=== PATIENT | female | born 1940 | race Caucasian/White ===

== ENCOUNTER 2020-07-23 07:13 | Outpatient (CLI) | payer MEDICARE, SELFPAY ==
[2020-07-23 07:46] LABS: Basophils Absolute Auto 0.1 K/mm3 (0.0-0.1); Eosinophils Absolute Auto 0.4 K/mm3 (0-0.3); Eosinophils Percent Auto 4.9 % (0-4.4); Hematocrit 36.1 % (37.0-47.0); Hemoglobin 11.9 g/dL (12.0-15.0); Immature Granulocyte Absolute 0.04 K/mm3 (0.00-0.031); Immature Granulocyte Percent A 0.6 % (0-0.5); Lymphocytes Absolute Auto 1.32 K/mm3 (0.9-3.2); Lymphocytes Percent Auto 18.6 % (18.3-44.2); Mean Corpuscular Hemoglobin 29.6 pg (26-34); Mean Corpuscular Volume 89.8 fl (80-100); Mean Platelet Volume 10.3 fl (7.4-10.4); Monocytes Absolute Auto 0.4 K/mm3 (0.1-0.6); Monocytes Percent Auto 5.8 % (2.6-8.5); Neutrophils Absolute Auto 4.9 K/mm3 (1.3-6.7); Neutrophils Percent Auto 69.1 % (45.5-73.1); Platelet Count Result 173 k/mm3 (150-375); Red Blood Count 4.02 M/mm3 (4.2-5.4); Red Cell Distribution Width 12.7 % (11.5-14.5); White Blood Count 7.1 K/mm3 (4.5-10.0)
[2020-07-23 07:55] LABS: Alanine Aminotransferase 11 U/L (4-35); Albumin Level 4.1 g/dL (3.5-5.1); Alkaline Phosphatase 71 U/L (38-126); Anion Gap 8 mmol/L (8-16); Aspartate Amino Transferase 20 U/L (14-36); Bilirubin,Total 0.4 mg/dL (0.2-1.3); Blood Urea Nitrogen 20 mg/dL (7-17); Carbon Dioxide 26 mmol/L (22-30); Chloride 109 mmol/L (98-107); Cholesterol 147 mg/dL (0-200); Estimated Glomerular Filt Rate 43; Glucose 98 mg/dL (65-105); HDL Direct 60 mg/dL; Potassium 4.2 mmol/L (3.4-5.0); Sodium 143 mmol/L (137-145); Triglycerides 119 mg/dL (<150)
[2020-07-23 08:06] LABS: LDL Cholesterol Direct 59 mg/dL
[2020-07-27 10:05] LABS: Vitamin D 1,25 (OH)2 Total 49 pg/mL (18-72); Vitamin D2 1,25 (OH)2 9 pg/mL; Vitamin D3 1,25 (OH)2 40 pg/mL
== END 2020-07-23 07:14 | disposition home or self-care (01) ==
PROVIDERS: PCP Family Medicine; Visit Provider Physician Assistant
DX: E55.9 Vitamin D deficiency, unspecified (principal); R53.1 Weakness; F51.04 Psychophysiologic insomnia; E78.2 Mixed hyperlipidemia; K21.9 Gastro-esophageal reflux disease without esophagitis
CPT/HCPCS: 36415; 80053; 80061; 82652; 85025

== ENCOUNTER 2021-10-21 09:47 | Outpatient (CLI) | payer MEDICARE, SELFPAY ==
--- NOTE | ~2021-10-21 | XR_ITS ---
XR lumbar spine min 4V DATE: 10/21/2021 10:06 INDICATION: Back pain, radiculopathy TECHNIQUE: AP, bilateral oblique, lateral and coned lateral lumbosacral views COMPARISON: 10/31/2017 CT lumbar spine FINDINGS: There is diffuse osteopenia. Mild dextroscoliosis of the lumbar spine. There is moderately severe degenerative disc disease at L1-L2 3 and moderate degenerative disc diseas e at L3-4. Status post posterior and interbody spinal fusion at L4-5. There is grade 1 anterolisthesis at L5-S1. The L5-S1 interspace appears relatively well preserved. The sacroiliac joints are intact. There is abdominal aortic calcification, without aneurysm. IMPRESSION: Status post posterior and interbody spinal fusion at L4-5 Multi-level degenerative disc disease Grade 1 anterolisthesis at L5-S1 Osteopenia Reviewed, dictated and finalized at location A. 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
== END 2021-10-21 09:48 | disposition home or self-care (01) ==
LOC: ANHIMG 09:54
PROVIDERS: PCP Family Medicine; Visit Provider Family Medicine
DX: M47.26 Other spondylosis with radiculopathy, lumbar region (principal); Z98.1 Arthrodesis status; M51.36 Other intervertebral disc degeneration, lumbar region; M43.17 Spondylolisthesis, lumbosacral region; M85.88 Other specified disorders of bone density and structure, other site
CPT/HCPCS: 72110

== ENCOUNTER 2021-11-26 08:25 | Outpatient (CLI) | payer MEDICARE, SELFPAY ==
--- NOTE | ~2021-11-26 | MR_ITS ---
EXAMINATION: MR lumbar spine wo con EXAM DATE: 11/26/2021 09:17 INDICATION: Other low back pain TECHNIQUE: Multi-sequential, multiplanar MR images of the lumbar spine were obtained without contrast . Sagittal T1, T2, T2 fat saturation images. Axial T2 weighted images. Comparison is made to prior examination from 10/27/2014. FINDINGS: There is been interval L4-5 posterior and interbody fusion with 3 mm anterolisthesis. Proba ble laminotomies at that level. Moderate to severe loss of the L2-3 disc height, mild to moderate L1- T2 disc disease. The conus medullaris terminates at the L1/2 level and has normal signal intensity an d morphology. Chronic appearing mild anterior wedging of T12 has developed compared to 2015. There a re scattered focal signal abnormalities consistent with hemangiomata, otherwise without focal suspici ous marrow signal abnormalities. Paraspinal soft tissue is unremarkable. Level by level evaluation: T10-11: Sagittal images only. Mild to moderate disc bulge. Facet arthropathy: Mild to moderate. Neural foraminal stenosis: Mild left. Central canal stenosis: Mild to moderate. T11-12: Sagittal images only. Mild disc bulge. Facet arthropathy: Minimal. Neural foraminal stenosis: No stenosis. Central canal stenosis: No stenosis. T12-L1: There is a minimal diffuse disc bulge. Facet arthropathy: Mild. Neural foraminal stenosis: Mild left. Central canal stenosis: No stenosis. L1-L2: There is a mild to moderate diffuse disc bulge. Facet arthropathy: Mild. Neural foraminal stenosis: Mild to moderate left, mild right. Central canal stenosis: Mild. L2-L3: There is a moderate diffuse disc bulge. Facet arthropathy: Mild to moderate. Neural foraminal stenosis: Mild to moderate bilateral. Central canal stenosis: Mild to moderate. L3-L4: There is a mild to moderate diffuse disc bulge. Facet arthropathy: Moderate. Neural foraminal stenosis: Mild to moderate bilateral. Central canal stenosis: Mild. L4-L5: This level is fused. Facet arthropathy: Fused. Neural foraminal stenosis: Moderate bilateral. Central canal stenosis: Mild. L5-S1: There is a mild diffuse disc bulge. Facet arthropathy: Moderate to severe bilateral, right greater than left. Neural foraminal stenosis: Mild to moderate left, mild right. Central canal stenosis: Mild. IMPRESSION: 1. Interval posterior fusion, laminotomies at L4-5. 2. Mild progression lumbar spondylosis. Reviewed, dictated and finalized at location A. 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
== END 2021-11-26 08:26 | disposition home or self-care (01) ==
LOC: ANHIMG 08:25
PROVIDERS: PCP Family Medicine; Visit Provider Nurse Practitioner Family
DX: M54.59 Other low back pain (principal); Z98.1 Arthrodesis status; M47.816 Spondylosis without myelopathy or radiculopathy, lumbar region
CPT/HCPCS: 72148

== ENCOUNTER 2021-12-02 01:41 | Day surgery (SDC) | payer MEDICARE, SELFPAY ==
[2021-11-25 09:26] VITALS: BMI 22.9
[2021-12-02 11:06] VITALS: BP 182/77; PULSE 65; RESP 20; TEMP 36.1; O2SAT 98; BMI 23.8
--- NOTE | 2021-12-02 11:08 | WPDANESEPPF ---
Anes - Initial Pre Proc Eval Procedure: Operation Date: 12/02/21 11:30 Proposed Procedures p Esophagogastroduodenoscopy - Niranjan Goodwin MD Date/Time: 12/02/21 11:08 Surgeon: Niranjan Goodwin MD Pre Op Diagnosis: dysphagia Patient Data Age: 81 Gender: F Height: 1.57 m Weight: 57 kg Allergies Allergy/AdvReac Type Severity Reaction Status Date / Time codeine Allergy Intermediate Nausea Verified 12/02/21 11:05 sulfamethoxazole Allergy Intermediate RASH Verified 12/02/21 11:05 trimethoprim Allergy Intermediate RASH Verified 12/02/21 11:05 ciprofloxacin Allergy Unknown Rash Verified 12/02/21 11:05 Sulfa (Sulfonamide Allergy Unknown Rash Verified 12/02/21 11:05 Antibiotics) mirtazapine AdvReac agitation Verified 12/02/21 11:05 MANY ANTIBIOTICS AdvReac Unknown RASH Uncoded 12/02/21 11:05 Home Medications Medication Instructions Recorded Confirmed Type rosuvastatin 10 mg tablet 10 mg PO DAILY #90 tablet 01/18/21 12/02/21 Rx bupropion HCl 100 mg tablet 100 mg PO DAILY #90 tablet 05/05/21 12/02/21 Rx omeprazole 40 mg capsule,delayed 40 mg PO DAILY #90 cap 05/05/21 12/02/21 Rx release memantine 5 mg tablet 5 mg PO BID #180 tablet 05/31/21 12/02/21 Rx gabapentin 100 mg capsule 100 mg PO TID #90 cap 10/21/21 12/02/21 Rx buspirone 5 mg PO TID 11/25/21 12/02/21 History quetiapine [Seroquel] 25 mg PO QHS 11/25/21 12/02/21 History Patient hx anesthesia problems: none Family hx anesthesia problems: none Results Review: All pre-operative results and documents have been reviewed as part of the pre-operative evaluation. [facility] Past Medical History Medical History Anxiety Depression Episode of syncope Esophageal dilatation SAM (generalized anxiety disorder) GERD (gastroesophageal reflux disease) History of cancer of right breast mastectomy, no lymph nodes taken Hyperlipidemia Schatzki's ring Surgical History Surgical History H/O breast reconstruction R H/O mastectomy Family History Family History Father Diabetes mellitus Hypertension Family history of cardiovascular disease Mother Diabetes mellitus Hypertension Family history of cardiovascular disease Family history of malignant neoplasm of breast in first degree relative Social History Social History (Updated 12/02/21 @ 11:08 by Tyler Grider MD) Social History: Smoking packs per day: 0.5 Smoking cigarettes per day: 10.0 Years smoked: 10 Smoking pack-years: 5.00 Smoking status: Former smoker Tobacco type: cigarettes Second hand tobacco smoke exposure: No Smoking end date: 10/01/70 Alcohol intake: never Substance use: never Substance use type: does not use Living arrangements: with family Gender identity (if verbalized by the patient): Female Sexual Orientation (if Verbalized by the Patient): Straight or Heterosexual Spiritual care concerns: No Anes - Eval Final PreProcedure Day of Procedure 12/02/21 11:08 Patient weight: normal Heart: regular rate and rhythm Lungs: clear to auscultation Airway: Mallampati scale class II Neurological: alert and oriented Last oral intake: >/= 8 hours ASA classification: II Emergent: no Anesthetic plan: proceed Anesthesia type and monitoring: general GIVS and standard monitoring Results Review: All pre-operative results and documents have been reviewed as part of the pre-operative evaluation. Informed Consent: The patient's anesthetic plan and its attendant risks and benefits were discussed with the patient/family/POA. Questions were solicited and answers provided to the satisfaction of the patient/family/POA.
[2021-12-02] MEDS: LACTATED RINGERS 1,000 ML 150 ML IV CONT (11:09)
--- NOTE | 2021-12-02 11:24 | PM.HPGS ---
History of Present Illness History of Present Illness Consent: Risks, benefits, and alternatives have been discussed and questions answered. Patient agrees to proceed with procedure. Chief complaint: dysphagia Narrative: Barbara Salgado is a 81 year old female with Schatzki's ring dilated in 2019 with TTS balloon 18mm, recently again with dysphagia. Review of Systems Constitutional: Constitutional: Denies headache(s) and Denies weakness Eyes: Eyes: Denies blurry vision ENT: Reports Normal hearing present, Denies headache(s) and Denies neck pain Cardiovascular: Cardiovascular: Denies chest pain and Denies dyspnea Respiratory: Respiratory: Denies dyspnea Gastrointestinal: Gastrointestinal: Reports no additional gastrointestinal complaints Genitourinary: Genitourinary: Denies dysuria Musculoskeletal: Musculoskeletal: Denies neck pain Integumentary/Breasts: Skin/Breast: Denies dry skin Neurologic: Reports Normal hearing present, Denies headache(s) and Denies weakness Psychiatric: Psychiatric: Denies anxiety Endocrine: Endocrine: Denies change in body appearance Hematologic/Lymphatic: Hematologic/Lymphatic: Denies easy bleeding Allergic/Immunologic: Allergic/Immunologic: Denies urticaria PMFSH Past Medical History Medical History (Updated 12/02/21 @ 11:25 by Niranjan Goodwin MD) Anxiety Depression Episode of syncope Esophageal dilatation SAM (generalized anxiety disorder) GERD (gastroesophageal reflux disease) History of cancer of right breast mastectomy, no lymph nodes taken Hyperlipidemia Schatzki's ring Surgical History Surgical History H/O breast reconstruction R H/O mastectomy Family History Family History Father Diabetes mellitus Hypertension Family history of cardiovascular disease Mother Diabetes mellitus Hypertension Family history of cardiovascular disease Family history of malignant neoplasm of breast in first degree relative Social History Social History (Updated 12/02/21 @ 11:08 by Tyler Grider MD) Social History: Smoking packs per day: 0.5 Smoking cigarettes per day: 10.0 Years smoked: 10 Smoking pack-years: 5.00 Smoking status: Former smoker Tobacco type: cigarettes Second hand tobacco smoke exposure: No Smoking end date: 10/01/70 Alcohol intake: never Substance use: never Substance use type: does not use Living arrangements: with family Gender identity (if verbalized by the patient): Female Sexual Orientation (if Verbalized by the Patient): Straight or Heterosexual Spiritual care concerns: No Meds Home Medications and Allergies Home Medications Medication Instructions Recorded Confirmed Type rosuvastatin 10 mg tablet 10 mg PO DAILY #90 tablet 01/18/21 12/02/21 Rx bupropion HCl 100 mg tablet 100 mg PO DAILY #90 tablet 05/05/21 12/02/21 Rx omeprazole 40 mg capsule,delayed 40 mg PO DAILY #90 cap 05/05/21 12/02/21 Rx release memantine 5 mg tablet 5 mg PO BID #180 tablet 05/31/21 12/02/21 Rx gabapentin 100 mg capsule 100 mg PO TID #90 cap 10/21/21 12/02/21 Rx buspirone 5 mg PO TID 11/25/21 12/02/21 History quetiapine [Seroquel] 25 mg PO QHS 11/25/21 12/02/21 History Allergies Allergy/AdvReac Type Severity Reaction Status Date / Time codeine Allergy Intermediate Nausea Verified 12/02/21 11:05 sulfamethoxazole Allergy Intermediate RASH Verified 12/02/21 11:05 trimethoprim Allergy Intermediate RASH Verified 12/02/21 11:05 ciprofloxacin Allergy Unknown Rash Verified 12/02/21 11:05 Sulfa (Sulfonamide Allergy Unknown Rash Verified 12/02/21 11:05 Antibiotics) mirtazapine AdvReac agitation Verified 12/02/21 11:05 MANY ANTIBIOTICS AdvReac Unknown RASH Uncoded 12/02/21 11:05 Vital Signs Vital Signs - 24 hr 12/02/21 11:06 Temperature 97 F L Pulse Rate 65 Respiratory Rate 20 Blood P
[2021-12-02 11:40] VITALS: BP 149/79; PULSE 66; RESP 16; O2SAT 100
[2021-12-02 11:50] VITALS: BP 124/71; PULSE 64; RESP 18; O2SAT 100
[2021-12-02 12:00] VITALS: BP 146/82; PULSE 61; RESP 20; O2SAT 100
== END 2021-12-02 12:21 | disposition home or self-care (01) ==
PROVIDERS: PCP Family Medicine; Visit Provider Internal Medicine Gastroenterology
PROC: 0DJ08ZZ Inspection of Upper Intestinal Tract, Via Natural or Artificial Opening Endoscopic (ICD-10-PCS; CPT 43235; principal; 2021-12-02 11:30)
DX: R13.19 Other dysphagia (principal); K44.9 Diaphragmatic hernia without obstruction or gangrene; Z90.11 Acquired absence of right breast and nipple; K22.2 Esophageal obstruction; K29.60 Other gastritis without bleeding; F41.8 Other specified anxiety disorders; F41.1 Generalized anxiety disorder; K21.9 Gastro-esophageal reflux disease without esophagitis; Z85.3 Personal history of malignant neoplasm of breast; E78.5 Hyperlipidemia, unspecified; Z87.81 Personal history of (healed) traumatic fracture
CPT/HCPCS: 43239; 43249; 88305; C1726; J2001; J2704; J7120

== ENCOUNTER 2022-06-26 09:44 | Outpatient (CLI) | payer MEDICARE, SELFPAY ==
--- NOTE | ~2022-06-26 | XR_ITS ---
XR shoulder LT min 2V 06/26/2022 10:03 INDICATION: Left shoulder pain PROCEDURE: 4 views left shoulder COMPARISON: No prior studies for comparison. FINDINGS: Fracture, dislocation or subluxation is not identified. The soft tissues appear within norm al limits. No foreign bodies are identified. IMPRESSION: 1: NO ACUTE BONE OR JOINT ABNORMALITY IDENTIFIED. Reviewed, dictated and finalized at location B.
== END 2022-06-26 09:45 | disposition home or self-care (01) ==
PROVIDERS: PCP Family Medicine; Visit Provider Family Medicine
DX: M25.512 Pain in left shoulder (principal)
CPT/HCPCS: 73030

== ENCOUNTER 2022-11-22 10:43 | Outpatient (CLI) | payer MEDICARE, SELFPAY ==
--- NOTE | ~2022-11-22 | XR_ITS ---
XR abdomen/kub 1V 11/22/2022 11:07 Indication: Abdominal pain Procedure: KUB Comparison: 11/16/2014 Findings: Bowel gas pattern is nonobstructive. Moderate colonic fecal loading. There surgical fusion changes at L4-5. There is atherosclerosis in the upper abdomen. There are pelvic phleboliths. Lung ba ses are unremarkable. Impression: 1: Nonobstructive bowel gas pattern. Reviewed, dictated and finalized at location B. 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
[2022-11-22 11:19] LABS: Alanine Aminotransferase 14 U/L (6-35); Albumin Level 4.4 g/dL (3.5-5.1); Alkaline Phosphatase 73 U/L (38-126); Anion Gap 9 mmol/L (8-16); Aspartate Amino Transferase 20 U/L (14-36); Bilirubin,Total 0.5 mg/dL (0.2-1.3); Blood Urea Nitrogen 13 mg/dL (7-17); Calcium 9.3 mg/dL (8.4-10.2); Carbon Dioxide 23 mmol/L (22-30); Chloride 106 mmol/L (98-107); Estimated Glomerular Filt Rate 60; Glucose 112 mg/dL (65-110); Potassium 3.4 mmol/L (3.4-5.0); Sodium 138 mmol/L (137-145)
[2022-11-22 11:22] LABS: Basophils Absolute Auto 0.1 K/mm3 (0.0-0.1); Basophils Percent Auto 0.7 % (0.2-1.2); Eosinophils Absolute Auto 0.2 K/mm3 (0-0.3); Eosinophils Percent Auto 2.2 % (0-4.4); Hematocrit 38.4 % (37.0-47.0); Hemoglobin 12.8 g/dL (12.0-15.0); Immature Granulocyte Absolute 0.04 K/mm3 (0.00-0.031); Immature Granulocyte Percent A 0.4 % (0-0.5); Lymphocytes Absolute Auto 0.98 K/mm3 (0.9-3.2); Lymphocytes Percent Auto 10.4 % (18.3-44.2); Mean Corpuscular HGB Conc 33.3 g/dl (32-36); Mean Corpuscular Hemoglobin 29.8 pg (26-34); Mean Corpuscular Volume 89.3 fl (80-100); Mean Platelet Volume 10.4 fl (7.4-10.4); Monocytes Absolute Auto 0.5 K/mm3 (0.1-0.6); Monocytes Percent Auto 5.3 % (2.6-8.5); Neutrophils Absolute Auto 7.6 K/mm3 (1.3-6.7); Platelet Count Result 195 k/mm3 (150-375); Red Cell Distribution Width 12.6 % (11.5-14.5); White Blood Count 9.4 K/mm3 (4.5-10.0)
[2022-11-22 11:34] LABS: Add Urine Microscopic? YES; Appearance Urine Cloudy (Clear); Bilirubin Urine Negative (Negative); Blood Urine 2+ (Negative); Color Urine Yellow (Yellow); Glucose Urine UA Trace mg/dL (Negative); Ketones Urine Negative (Negative); Leukocyte Esterase Ur 2+ LEU/UL (Negative); Nitrate Urine Positive (Negative); Protein Urine 2+ mg/dL (Negative)
[2022-11-22 11:38] LABS: Mucus Urine Rare /lpf; RBC Urine 21-50 /hpf (0-2); Squamous Epithelial Cell Urine Occasional /hpf (Few); WBC Clumps Urine Present /HPF; WBC Urine >75 /hpf
== END 2022-11-22 10:44 | disposition home or self-care (01) ==
PROVIDERS: PCP Family Medicine; Visit Provider Nurse Practitioner Gerontology
DX: R10.9 Unspecified abdominal pain (principal); R30.0 Dysuria; R55 Syncope and collapse; I10 Essential (primary) hypertension
CPT/HCPCS: 36415; 74018; 80053; 81001; 84443; 85025; 87086; 87088

== ENCOUNTER 2022-12-11 07:19 | Outpatient (CLI) | payer MEDICARE, SELFPAY ==
[2022-12-11 10:11] LABS: Rapid Plasma Reagin Non-Reactive (NonReactive)
== END 2022-12-11 07:20 | disposition home or self-care (01) ==
PROVIDERS: PCP Family Medicine; Referring Provider Nurse Practitioner Gerontology; Visit Provider Family Medicine
DX: Z20.9 Contact with and (suspected) exposure to unspecified communicable disease (principal); R55 Syncope and collapse; I10 Essential (primary) hypertension
CPT/HCPCS: 36415; 84443; 86592

== ENCOUNTER 2023-01-01 15:28 | Outpatient (CLI) | payer MEDICARE, SELFPAY ==
--- NOTE | ~2023-01-01 | XR_ITS ---
EXAMINATION: XR shoulder RT min 2V DATE: 01/01/2023 15:49 INDICATION: Right shoulder pain. TECHNIQUE: 4 views of right shoulder were obtained. COMPARISON: None. FINDINGS: Bone alignment is normal. No fracture. There is mild osteoarthritis of glenohumeral joint a nd severe osteoarthritis of acromioclavicular joint. IMPRESSION: 1. Polyarticular osteoarthritis. Reviewed, dictated and finalized at location A.
== END 2023-01-01 15:29 | disposition home or self-care (01) ==
LOC: ANHIMG 15:29
PROVIDERS: PCP Family Medicine; Visit Provider Nurse Practitioner Gerontology
DX: M19.011 Primary osteoarthritis, right shoulder (principal)
CPT/HCPCS: 73030

== ENCOUNTER 2023-03-22 10:25 | Outpatient (CLI) | payer MEDICARE, SELFPAY ==
--- NOTE | ~2023-03-22 | XR_ITS ---
XR chest 2V 03/22/2023 10:53 Indication: Shortness of breath Procedure: PA and lateral views of the chest Comparison: 12/11/2018 Findings: Heart size normal. Chronic left basilar scarring. The lungs are hyperinflated which is cons istent with, but not diagnostic of chronic obstructive pulmonary disease. No focal air space disease, pulmonary edema, pleural effusion or suspected pneumothorax. Impression: 1: No acute cardiopulmonary disease. Reviewed, dictated and finalized at location L. Impression: 1: No acute cardiopulmonary disease.
[2023-03-22 10:44] LABS: Basophils Absolute Auto 0.1 K/mm3 (0.0-0.1); Eosinophils Absolute Auto 0.3 K/mm3 (0-0.3); Eosinophils Percent Auto 3.3 % (0-4.4); Hematocrit 33.7 % (37.0-47.0); Immature Granulocyte Absolute 0.07 K/mm3 (0.00-0.031); Immature Granulocyte Percent A 0.8 % (0-0.5); Lymphocytes Absolute Auto 1.17 K/mm3 (0.9-3.2); Lymphocytes Percent Auto 14.2 % (18.3-44.2); Mean Corpuscular HGB Conc 32.6 g/dl (32-36); Mean Corpuscular Hemoglobin 31.3 pg (26-34); Mean Corpuscular Volume 95.7 fl (80-100); Monocytes Absolute Auto 0.5 K/mm3 (0.1-0.6); Monocytes Percent Auto 5.9 % (2.6-8.5); Neutrophils Absolute Auto 6.2 K/mm3 (1.3-6.7); Neutrophils Percent Auto 74.8 % (45.5-73.1); Platelet Count Result 189 k/mm3 (150-375); Red Blood Count 3.52 M/mm3 (4.2-5.4); Red Cell Distribution Width 12.8 % (11.5-14.5); White Blood Count 8.3 K/mm3 (4.5-10.0)
[2023-03-22 20:19] LABS: Alanine Aminotransferase 16 U/L (6-35); Albumin Level 4.2 g/dL (3.5-5.1); Alkaline Phosphatase 52 U/L (38-126); Anion Gap 7 mmol/L (8-16); Aspartate Amino Transferase 24 U/L (14-36); Bilirubin,Total 0.5 mg/dL (0.2-1.3); Blood Urea Nitrogen 32 mg/dL (7-17); Calcium 9.2 mg/dL (8.4-10.2); Carbon Dioxide 29 mmol/L (22-30); Chloride 106 mmol/L (98-107); Estimated Glomerular Filt Rate 33; Glucose 102 mg/dL (65-110); Potassium 4.6 mmol/L (3.4-5.0); Sodium 142 mmol/L (137-145)
== END 2023-03-22 10:26 | disposition home or self-care (01) ==
PROVIDERS: PCP Family Medicine; Visit Provider Family Medicine
DX: R06.02 Shortness of breath (principal); I10 Essential (primary) hypertension; E03.9 Hypothyroidism, unspecified
CPT/HCPCS: 36415; 71046; 80053; 84443; 85025

== ENCOUNTER 2023-05-22 09:05 | Observation (INO) | payer MEDICARE, SELFPAY ==
[2023-05-22] VITALS (34 sets, daily range): BP systolic 103–151; BP diastolic 45–90; PULSE 63–131; RESP 11–29; TEMP 36.3–37.1; O2SAT 94–100; BMI 21.1
--- NOTE | ~2023-05-22 | XR_ITS ---
EXAMINATION: XR chest 2V DATE: 05/22/2023 11:00 INDICATION: Weakness TECHNIQUE: AP and lateral views of the chest are obtained. COMPARISON: 03/22/2023 FINDINGS: The lungs are free of acute opacities. No pleural effusion or pneumothorax. The cardiomedia stinal silhouette is normal. There is moderate thoracic spondylosis. There are changes of right maste ctomy with implant reconstruction. There are partially imaged changes of posterior fusion in the lumb ar spine. IMPRESSION: 1. No acute cardiopulmonary abnormality. Reviewed, dictated and finalized at location A.
--- NOTE | 2023-05-22 10:28 | ECG_ITS ---
Measurements Intervals [place] Rate: 70 P: 22 OK: 169 QRS: 14 QRSD: 79 T: 22 QT: 412 QTc: 445 Interpretive Statements SINUS RHYTHM POSSIBLE LEFT ATRIAL ENLARGEMENT [-0.1mV P-WAVE IN V1/V2] NONSPECIFIC ST AND T WAVE ABNORMALITY COMPARED TO ECG 07/16/2019 10:27:22 NO SIGNIFICANT CHANGES Electronically Signed On 05-22-2023 11:30:27 CDT by Mario Mai M.D.
[2023-05-22 10:51] LABS: Basophils Absolute Auto 0.1 K/mm3 (0.0-0.1); Basophils Percent Auto 0.9 % (0.2-1.2); Eosinophils Absolute Auto 0.1 K/mm3 (0-0.3); Eosinophils Percent Auto 1.6 % (0-4.4); Hematocrit 31.9 % (37.0-47.0); Hemoglobin 10.8 g/dL (12.0-15.0); Immature Granulocyte Absolute 0.19 K/mm3 (0.00-0.031); Immature Granulocyte Percent A 2.7 % (0-0.5); Lymphocytes Absolute Auto 1.15 K/mm3 (0.9-3.2); Lymphocytes Percent Auto 16.6 % (18.3-44.2); Mean Corpuscular HGB Conc 33.9 g/dl (32-36); Mean Corpuscular Hemoglobin 30.5 pg (26-34); Mean Corpuscular Volume 90.1 fl (80-100); Mean Platelet Volume 10.7 fl (7.4-10.4); Monocytes Absolute Auto 0.7 K/mm3 (0.1-0.6); Monocytes Percent Auto 9.4 % (2.6-8.5); Neutrophils Absolute Auto 4.8 K/mm3 (1.3-6.7); Neutrophils Percent Auto 68.8 % (45.5-73.1); Platelet Count Result 198 k/mm3 (150-375); Red Blood Count 3.54 M/mm3 (4.2-5.4); Red Cell Distribution Width 12.1 % (11.5-14.5); White Blood Count 6.9 K/mm3 (4.5-10.0)
[2023-05-22 11:05] LABS: Alanine Aminotransferase 24 U/L (6-35); Alkaline Phosphatase 75 U/L (38-126); Anion Gap 10 mmol/L (8-16); Aspartate Amino Transferase 29 U/L (14-36); Bilirubin,Total 0.7 mg/dL (0.2-1.3); Blood Urea Nitrogen 36 mg/dL (7-17); Calcium 9.4 mg/dL (8.4-10.2); Carbon Dioxide 28 mmol/L (22-30); Chloride 96 mmol/L (98-107); Estimated CRCL calculation 18 ml/min; Estimated Glomerular Filt Rate 31; Glucose 95 mg/dL (65-110); Potassium 3.5 mmol/L (3.4-5.0); Sodium 134 mmol/L (137-145)
[2023-05-22 11:49] LABS: Appearance Urine Clear (Clear); Bacteria Urine 4+ /hpf; Bilirubin Urine Negative (Negative); Blood Urine Negative (Negative); Color Urine Yellow (Yellow); Glucose Urine UA Negative (Negative); Ketones Urine Negative (Negative); Leukocyte Esterase Ur 2+ LEU/UL (Negative); Nitrate Urine Positive (Negative); Non Pathogenic Casts 0-2; Protein Urine Negative (Negative); RBC Urine 0-2 /hpf (0-2); Squamous Epithelial Cell Urine Occasional /hpf (Few)
[2023-05-22 11:50] LABS: Add Urine Microscopic? YES
[2023-05-22] MEDS: SODIUM CHLORIDE 0.9% IV 1,000 ML 999 ML IV CONT (13:37)
--- NOTE | 2023-05-22 13:42 | ED.GENADULT ---
HPI - General Adult General Chief complaint: Weakness Stated complaint: weakness Time Seen by Provider: 05/22/23 11:55 History of Present Illness HPI narrative: 82-year-old female with history of high cholesterol, hypertension, acute kidney injury present emergency department for evaluation of increased generalized weakness and urinary symptoms. Patient reports he started having increased generalized weakness and decreased p.o. intake yesterday. Patient does describe some pain with urination. Related Data Home Medications Medication Instructions Recorded Confirmed bupropion HCl 100 mg tablet 100 mg PO DAILY 05/22/23 05/22/23 buspirone 10 mg tablet 10 mg PO BID 05/22/23 05/22/23 fluoxetine 20 mg tablet 20 mg PO DAILY 05/22/23 05/22/23 irbesartan 150 1 tablet PO DAILY 05/22/23 05/22/23 mg-hydrochlorothiazide 12.5 mg tablet memantine 5 mg tablet 5 mg PO BID 05/22/23 05/22/23 omeprazole 40 mg capsule,delayed 40 mg PO DAILY 05/22/23 05/22/23 release quetiapine 25 mg tablet 25 mg PO HS 05/22/23 05/22/23 rosuvastatin 10 mg tablet 10 mg PO DAILY 05/22/23 05/22/23 Allergies Allergy/AdvReac Type Severity Reaction Status Date / Time codeine Allergy Intermediate Nausea Verified 05/22/23 16:35 sulfamethoxazole Allergy Intermediate RASH Verified 05/22/23 16:35 trimethoprim Allergy Intermediate RASH Verified 05/22/23 16:35 ciprofloxacin Allergy Unknown Rash Verified 05/22/23 16:35 Sulfa (Sulfonamide Allergy Unknown Rash Verified 05/22/23 16:35 Antibiotics) mirtazapine AdvReac agitation Verified 05/22/23 16:35 MANY ANTIBIOTICS AdvReac Unknown RASH Uncoded 05/22/23 16:35 Review of Systems Review of Systems: All systems reviewed & are unremarkable except as noted in HPI and below PMFSH Past Medical History Medical History Acute non-recurrent maxillary sinusitis Acute pain Anorexia Anxiety Breast cancer screening Chest pain at rest Depression Dietary counseling and surveillance (07/27/17) Dysphagia Episode of syncope Esophageal dilatation Face lesion SAM (generalized anxiety disorder) GERD (gastroesophageal reflux disease) Hip pain, bilateral History of cancer of right breast mastectomy, no lymph nodes taken History of postoperative nausea and vomiting Hyperlipidemia Other dysphagia Pain in left hip Pharyngoesophageal dysphagia Postmenopausal Postmenopausal Scalp itch Schatzki's ring Shoulder pain, left Shoulder pain, left Stomatitis Subacute ethmoidal sinusitis Syncope and collapse Tendinitis of left rotator cuff Tongue coating Vaginitis and vulvovaginitis Weakness Weight loss Weight loss Surgical History Surgical History H/O breast reconstruction R H/O mastectomy History of dental surgery History of hysterectomy Family History Family History (Updated 05/22/23 @ 16:26 by Fab Oden RN) Father Family history of cardiovascular disease Hypertension Mother Family history of cardiovascular disease Diabetes mellitus Family history of malignant neoplasm of breast in first degree relative Hypertension Social History Social History Social History: Smoking packs per day: 1 Smoking cigarettes per day: 20.0 Years smoked: 6 Smoking pack-years: 6.00 Smoking status: Former smoker Tobacco type: cigarettes Second hand tobacco smoke exposure: No Smoking end date: 10/01/70 Alcohol intake: never Substance use: never Substance use type: does not use Lack of Transportation: No Lack of Food: Never True Current Housing: I Have Housing Concerned About Future Housing: No Difficulty Paying Gas/Electric Bills: No Difficulty Paying for Meds: No Currently Unemployed: No Education: Master's Degree or Higher Difficulty w/ Childcare or Family Care: No Living arrangements: with family Occupation
[2023-05-22 13:49] LABS: Influenza A QL RT-PCR Negative (Negative); Influenza B QL RT-PCR Negative (Negative); RSV RNA, RT-PCR Negative (Negative); SARS-CoV-2 RNA PCR Negative (Negative)
[2023-05-22] MEDS: SODIUM CHLORIDE 0.9% IV 1,000 ML 75 ML IV CONT ×2 (15:12→23:19)
--- NOTE | 2023-05-22 15:52 | PC.NURSE ---
Called son, Isac at [phone], made aware of pt going to 311.
--- NOTE | 2023-05-22 16:10 | ADMGEN ---
This patient, Barbara Salgado, was admitted to 3 Med Surg Room 311-01. Patient/family oriented to hospital policies and general routines including ID bracelet, bed and alarms, visiting hours, pain management, procedures, bathroom and other care routines, personal items, smoking policy, room service/diet, and visiting hours. Information on how to activate the Rapid Response Team has been discussed. Patient/Family are encouraged to report perceived risks to care and to ask questions if they do not understand what they are told or what they should do.
--- NOTE | 2023-05-22 16:21 | PC.NURSE ---
transferred to floor with IV fluids infusing
[2023-05-22 16:43] LABS: Glucose Point of Care 104 mg/dl (65-105)
--- NOTE | 2023-05-22 22:41 | PM.IMHP ---
H&P: HPI History of Present Illness Date/Time: 05/22/23 22:41 Chief Complaint: weakness Narrative: This is a 82-year-old female with history of high cholesterol, hypertension, acute kidney injury present emergency department for evaluation of increased generalized weakness and urinary symptoms.? Patient reports he started having increased generalized weakness and decreased p.o. intake yesterday.? Patient does describe some pain with urination. H&H is 10.8 and 31.9. Chest x-ray was read as no acute cardiopulmonary abnormality. Urine was positive for nitrates. 2+ leukocyte esterase WBCs 11-20. 4+ urine bacteria. She was negative for influenza A/B RSV and COVID. The patient was given IV fluids and Rocephin. The patient stated she is feeling much better. The patient is being admitted to observation status on the date of service of 05/22/2023 Review of Systems Review of Systems: All systems reviewed & are unremarkable except as noted in HPI and below Constitutional: Constitutional: Reports as per HPI and Reports no additional constitutional complaints Eyes: Eyes: Reports as per HPI and Reports no additional eye complaints ENT: Reports system reviewed and no additional complaints, except as documented and Reports Normal hearing present Cardiovascular: Cardiovascular: Reports no additional cardiovascular complaints Respiratory: Respiratory: Reports no additional respiratory complaints and Reports no additional respiratory complaints Gastrointestinal: Gastrointestinal: Reports as per HPI and Reports no additional gastrointestinal complaints Musculoskeletal: Musculoskeletal: Reports no additional musculoskeletal complaints Integumentary/Breasts: Skin/Breast: Reports system reviewed and no additional complaints, except as docu and Reports as per HPI Neurologic: Reports system reviewed and no additional complaints, except as documented, Reports as per HPI and Reports Normal hearing present Psychiatric: Psychiatric: Reports no additional psychiatric complaints and Reports as per HPI Endocrine: Endocrine: Reports no additional endocrine complaints Hematologic/Lymphatic: Hematologic/Lymphatic: Reports no additional hematologic/lymphatic complaints Allergic/Immunologic: Allergic/Immunologic: Reports no additional allergic/immunologic complaints [facility] Past Medical History Medical History Acute non-recurrent maxillary sinusitis Acute pain Anorexia Anxiety Breast cancer screening Chest pain at rest Depression Dietary counseling and surveillance (07/27/17) Dysphagia Episode of syncope Esophageal dilatation Face lesion SAM (generalized anxiety disorder) GERD (gastroesophageal reflux disease) Hip pain, bilateral History of cancer of right breast mastectomy, no lymph nodes taken History of postoperative nausea and vomiting Hyperlipidemia Other dysphagia Pain in left hip Pharyngoesophageal dysphagia Postmenopausal Postmenopausal Scalp itch Schatzki's ring Shoulder pain, left Shoulder pain, left Stomatitis Subacute ethmoidal sinusitis Syncope and collapse Tendinitis of left rotator cuff Tongue coating Vaginitis and vulvovaginitis Weakness Weight loss Weight loss Surgical History Surgical History (Updated 05/23/23 @ 03:31 by Afia Baltazar NP) H/O breast reconstruction R H/O cataract extraction H/O mastectomy H/O Spinal surgery L4-L5 pin H/O varicose vein stripping History of appendectomy History of dental surgery History of hysterectomy Status post right foot surgery Family History Family History Father Family history of cardiovascular disease Hypertension Mother Family history of cardiovascular disease Diabetes mellitus Family history of malignant neoplasm of breast in first degree relative Hypertension Social History Social History (Updated 05/23/23 @ 03:32 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
[2023-05-22] MEDS: QUEtiapine FUMARATE 25 MG TABLET PO (23:19)
[2023-05-22] MEDS: MEMANTINE 5 MG TABLET PO (23:19)
[2023-05-22] MEDS: busPIRone HCL 10 MG TABLET PO (23:19)
[2023-05-23 04:02] VITALS: BP 123/64; PULSE 69; RESP 16; TEMP 36.5; O2SAT 100
[2023-05-23 06:59] LABS: Basophils Percent Auto 0.8 % (0.2-1.2); Eosinophils Absolute Auto 0.2 K/mm3 (0-0.3); Eosinophils Percent Auto 4.7 % (0-4.4); Hematocrit 26.4 % (37.0-47.0); Hemoglobin 8.5 g/dL (12.0-15.0); Immature Granulocyte Absolute 0.13 K/mm3 (0.00-0.031); Immature Granulocyte Percent A 2.6 % (0-0.5); Lymphocytes Absolute Auto 1.08 K/mm3 (0.9-3.2); Lymphocytes Percent Auto 21.9 % (18.3-44.2); Mean Corpuscular HGB Conc 32.2 g/dl (32-36); Mean Corpuscular Hemoglobin 29.7 pg (26-34); Mean Corpuscular Volume 92.3 fl (80-100); Mean Platelet Volume 9.5 fl (7.4-10.4); Monocytes Absolute Auto 0.5 K/mm3 (0.1-0.6); Monocytes Percent Auto 9.3 % (2.6-8.5); Neutrophils Percent Auto 60.7 % (45.5-73.1); Platelet Count Result 158 k/mm3 (150-375); Red Blood Count 2.86 M/mm3 (4.2-5.4); Red Cell Distribution Width 11.9 % (11.5-14.5); White Blood Count 4.9 K/mm3 (4.5-10.0)
[2023-05-23 07:14] LABS: Alanine Aminotransferase 19 U/L (6-35); Alkaline Phosphatase 59 U/L (38-126); Anion Gap 9 mmol/L (8-16); Aspartate Amino Transferase 24 U/L (14-36); Bilirubin,Total 0.4 mg/dL (0.2-1.3); Blood Urea Nitrogen 21 mg/dL (7-17); Calcium 8.2 mg/dL (8.4-10.2); Carbon Dioxide 28 mmol/L (22-30); Chloride 103 mmol/L (98-107); Estimated CRCL calculation 20 ml/min; Estimated Glomerular Filt Rate 33; Glucose 95 mg/dL (65-110); Magnesium 1.5 mg/dL (1.6-2.3); Potassium 3.5 mmol/L (3.4-5.0); Sodium 140 mmol/L (137-145)
[2023-05-23 09:14] VITALS: O2SAT 97
[2023-05-23 09:18] VITALS: O2SAT 97
[2023-05-23] MEDS: FLUoxetine HCL 20 MG CAPSULE PO (09:18)
[2023-05-23] MEDS: hydroCHLOROthiazide 12.5 MG CAPSULE PO (09:18)
[2023-05-23] MEDS: MEMANTINE 5 MG TABLET PO ×2 (09:18→17:01)
[2023-05-23] MEDS: ROSUVASTATIN 10 MG TABLET PO (09:18)
[2023-05-23] MEDS: buPROPion HCL 100 MG TABLET PO (09:18)
[2023-05-23] MEDS: busPIRone HCL 10 MG TABLET PO ×2 (09:19→17:01)
[2023-05-23] MEDS: IRBESARTAN 150 MG TABLET PO (09:19)
[2023-05-23] MEDS: PANTOPRAZOLE 40 MG TABLET PO ×2 (09:19→21:29)
[2023-05-23 11:39] VITALS: BMI 21.1
--- NOTE | 2023-05-23 12:20 | PM.IMPN ---
Progress Note: A&P Assessment and Plan (1) Acute UTI: Code(s): N39.0 - Urinary tract infection, site not specified Status: Acute Assessment and Plan: Continue with IV antibiotics. Blood and urine culture pending. (2) SAM (generalized anxiety disorder): Code(s): F41.1 - Generalized anxiety disorder Status: Acute Assessment and Plan: Stable current meds, continue with Prozac, BuSpar, Seroquel, and Wellbutrin (3) Essential (primary) hypertension: Code(s): I10 - Essential (primary) hypertension Status: Acute Assessment and Plan: Stable current meds, continue with hydrochlorothiazide and continue to monitor renal function. Continue with Avapro. (4) Anemia: Qualifiers: Anemia type: iron deficiency Iron deficiency anemia type: inadequate dietary iron intake Qualified Code(s): D50.8 - Other iron deficiency anemias Code(s): D64.9 - Anemia, unspecified Status: Acute Assessment and Plan: Patient hemoglobin dropped to 8.5. Will monitor closely. Possibly secondary to IV fluids. (5) Acute on chronic renal insufficiency: Code(s): N28.9 - Disorder of kidney and ureter, unspecified; N18.9 - Chronic kidney disease, unspecified Status: Acute Assessment and Plan: Continue with IV fluid and monitor closely Subjective Date/time seen: 05/23/23 12:20 Interval history: Patient was seen during the morning rounds today. Patient is feeling better. No shortness of breath or chest pain. No abdominal pain, nausea, no vomiting. Mood stable. Review of Systems Review of Systems: All systems reviewed & are unremarkable except as noted in HPI and below Constitutional: Constitutional: Reports as per HPI and Reports no additional constitutional complaints Eyes: Eyes: Reports as per HPI and Reports no additional eye complaints ENT: Reports system reviewed and no additional complaints, except as documented and Reports Normal hearing present Cardiovascular: Cardiovascular: Reports no additional cardiovascular complaints Respiratory: Respiratory: Reports no additional respiratory complaints and Reports no additional respiratory complaints Gastrointestinal: Gastrointestinal: Reports as per HPI and Reports no additional gastrointestinal complaints Musculoskeletal: Musculoskeletal: Reports no additional musculoskeletal complaints Integumentary/Breasts: Skin/Breast: Reports system reviewed and no additional complaints, except as docu and Reports as per HPI Neurologic: Reports system reviewed and no additional complaints, except as documented, Reports as per HPI and Reports Normal hearing present Psychiatric: Psychiatric: Reports no additional psychiatric complaints and Reports as per HPI Endocrine: Endocrine: Reports no additional endocrine complaints Hematologic/Lymphatic: Hematologic/Lymphatic: Reports no additional hematologic/lymphatic complaints Allergic/Immunologic: Allergic/Immunologic: Reports no additional allergic/immunologic complaints Exam Const: General: cooperative, healthy appearing, comfortable, no acute distress, well developed, awake, Physically active, average body habitus and well nourished Nutritional Appearance: average body habitus and well nourished Orientation/consciousness: oriented to person, oriented to place, oriented to time and patient oriented x3 Limitations: no limitations HENMT: Head: normal to inspection, No palpable skull fracture present, normocephalic and atraumatic Ears: hearing grossly normal bilaterally and external ears normal Face/Nose/Sinus: Normal external nose present and Normal nares present Eyes: General: appearance normal, both eyes and all related structures Alignment and Position: alignment normal Periorbital: periorbital findings normal Eyelids: eyelids normal Sclera: sclerae normal Pupils: Equal, round and reactive pupils present EOM: EOMs intact bilaterally Neck: Neck: normal v
[2023-05-23 13:50] VITALS: BP 125/70; PULSE 89; RESP 16; TEMP 37.2; O2SAT 100
[2023-05-23 16:17] LABS: IFOB Positive Control Positive; Immunochemical Fecal Occult Bl Negative (N)
[2023-05-23] MEDS: SODIUM CHLORIDE 0.9% IV 1,000 ML 75 ML IV CONT (16:55)
[2023-05-23] MEDS: QUEtiapine FUMARATE 25 MG TABLET PO (21:29)
[2023-05-23 21:45] VITALS: BP 147/59; PULSE 67; RESP 16; TEMP 37; O2SAT 100
[2023-05-24 05:39] VITALS: BP 132/66; PULSE 73; RESP 14; TEMP 36.8; O2SAT 99
[2023-05-24 06:27] LABS: Basophils Percent Auto 0.7 % (0.2-1.2); Eosinophils Absolute Auto 0.3 K/mm3 (0-0.3); Eosinophils Percent Auto 5.3 % (0-4.4); Hematocrit 26.6 % (37.0-47.0); Hemoglobin 8.6 g/dL (12.0-15.0); Immature Granulocyte Absolute 0.11 K/mm3 (0.00-0.031); Immature Granulocyte Percent A 1.9 % (0-0.5); Lymphocytes Absolute Auto 1.01 K/mm3 (0.9-3.2); Lymphocytes Percent Auto 17.9 % (18.3-44.2); Mean Corpuscular HGB Conc 32.3 g/dl (32-36); Mean Corpuscular Hemoglobin 29.9 pg (26-34); Mean Corpuscular Volume 92.4 fl (80-100); Mean Platelet Volume 10.4 fl (7.4-10.4); Monocytes Absolute Auto 0.4 K/mm3 (0.1-0.6); Monocytes Percent Auto 7.1 % (2.6-8.5); Neutrophils Absolute Auto 3.8 K/mm3 (1.3-6.7); Neutrophils Percent Auto 67.1 % (45.5-73.1); Platelet Count Result 155 k/mm3 (150-375); Red Blood Count 2.88 M/mm3 (4.2-5.4); Red Cell Distribution Width 11.9 % (11.5-14.5); White Blood Count 5.7 K/mm3 (4.5-10.0)
[2023-05-24] MEDS: SODIUM CHLORIDE 0.9% IV 1,000 ML 75 ML IV CONT (06:41)
[2023-05-24 06:42] LABS: Alanine Aminotransferase 20 U/L (6-35); Alkaline Phosphatase 58 U/L (38-126); Anion Gap 5 mmol/L (8-16); Aspartate Amino Transferase 25 U/L (14-36); Bilirubin,Total 0.3 mg/dL (0.2-1.3); Blood Urea Nitrogen 14 mg/dL (7-17); Calcium 8.3 mg/dL (8.4-10.2); Carbon Dioxide 28 mmol/L (22-30); Chloride 107 mmol/L (98-107); Estimated CRCL calculation 21 ml/min; Estimated Glomerular Filt Rate 36; Glucose 92 mg/dL (65-110); Potassium 3.5 mmol/L (3.4-5.0); Sodium 140 mmol/L (137-145)
[2023-05-24] MEDS: buPROPion HCL 100 MG TABLET PO (08:17)
[2023-05-24] MEDS: MEMANTINE 5 MG TABLET PO (08:17)
[2023-05-24] MEDS: busPIRone HCL 10 MG TABLET PO (08:17)
[2023-05-24] MEDS: hydroCHLOROthiazide 12.5 MG CAPSULE PO (08:17)
[2023-05-24] MEDS: FLUoxetine HCL 20 MG CAPSULE PO (08:17)
[2023-05-24] MEDS: PANTOPRAZOLE 40 MG TABLET PO (08:17)
[2023-05-24] MEDS: IRBESARTAN 150 MG TABLET PO (08:17)
[2023-05-24] MEDS: ROSUVASTATIN 10 MG TABLET PO (08:18)
[2023-05-24] MEDS: ACETAMINOPHEN 325 MG TABLET 650 MG PO (11:11)
--- NOTE | 2023-05-24 13:40 | PM.DS ---
DS: Admitting Diagnosis Discharge Date 05/24/2023 Admitting Diagnosis Generalized weakness DS: Discharge Diagnosis Discharge Diagnosis (1) Acute UTI: Code(s): N39.0 - Urinary tract infection, site not specified Status: Acute (2) SAM (generalized anxiety disorder): Code(s): F41.1 - Generalized anxiety disorder Status: Acute (3) Essential (primary) hypertension: Code(s): I10 - Essential (primary) hypertension Status: Acute (4) Anemia: Qualifiers: Anemia type: iron deficiency Iron deficiency anemia type: inadequate dietary iron intake Qualified Code(s): D50.8 - Other iron deficiency anemias Code(s): D64.9 - Anemia, unspecified Status: Acute (5) Acute on chronic renal insufficiency: Code(s): N28.9 - Disorder of kidney and ureter, unspecified; N18.9 - Chronic kidney disease, unspecified Status: Acute DS: Summary Hospital Course Hospital Course: 82-year-old female presented generalized weakness and urinary symptoms. His found to have UTI also had JOHANNA with elevated BUN than. She was treated with IV fluids IV antibiotics. Blood culture came back negative urine culture grew E coli. Antibiotic was switched to oral and was discharged. Time Spent with Patient Time attestation: Total time spent providing and/or coordinating discharge services: 30 minutes Exam Narrative: APPEARANCE: Well appearing, no pain, no distress, well-nourished. HEAD: normocephalic, atraumatic. EYES: PERRLA/EOMI, conjunctivae clear. NOSE: Normal no drainage RESPIRATORY: Airway patent, respirations nonlabored. Clear to auscultation bilaterally, no rales, rhonchi, wheezing. CARDIOVASCULAR: Regular rate and rhythm without murmurs rubs or gallops. ABDOMINAL: Soft, nontender, nondistended, normal bowel sounds MUSCULOSKELETAL: Moves all extremities. Strength/ROM intact, No edema, No calf tenderness. NEURO: Alert. Cranial nerves II through XII intact. Good gait. Good coordination SKIN: Warm, dry. Normal Color DS: Data Data Completed and Pending Labs on day of discharge: Labs from last 24 hours 05/24/23 05/23/23 05:36 15:34 WBC 5.7 RBC 2.88 L Hgb 8.6 L Hct 26.6 L MCV 92.4 MCH 29.9 MCHC 32.3 RDW 11.9 Plt Count 155 MPV 10.4 Immature Gran % (Auto) 1.9 H Neut % (Auto) 67.1 Lymph % (Auto) 17.9 L Esmeralda % (Auto) 7.1 Eos % (Auto) 5.3 H Baso % (Auto) 0.7 Lymph # (Auto) 1.01 Esmeralda # (Auto) 0.4 Eos # (Auto) 0.3 Baso # (Auto) 0.0 Abs Immat Gran (auto) 0.11 H Absolute Neuts (auto) 3.8 Absolute Nucleated RBC 0.0 Nucleated RBC % 0.0 Sodium 140 Potassium 3.5 Chloride 107 Carbon Dioxide 28 Anion Gap 5 L BUN 14 D Creatinine 1.40 H Estim Creat Clear Calc 21 Estimated GFR 36 L Glucose 92 Calcium 8.3 L Total Bilirubin 0.3 AST 25 ALT 20 Alkaline Phosphatase 58 Total Protein 6.0 L Albumin 3.0 L Stl Occult Blood (IFOB) Negative Preliminary micro results at discharge 05/22/23 14:11 Blood Culture - Preliminary Blood 05/22/23 14:11 Blood Culture - Preliminary Blood Imaging Radiologist's impression: ITS Impressions Chest X-Ray 05/22/23 11:01 IMPRESSION: 1. No acute cardiopulmonary abnormality. Discharge Plan Discharge Attending physician on discharge: Herb Le Discharging Clinician: Herb Le Anticipated Discharge Date/Time: 05/24/23 13:10 Patient Disposition: Home, Self-Care Activity: as tolerated Diet: heart healthy Patient Instructions: Antibiotic Form Stand Alone Forms: General Discharge Information Follow-up/Referrals: Josefina Driscoll MD [Primary Care Provider] - 1 Week Discharge Medications: New cephalexin 500 mg capsule 500 mg PO Q12H Qty: 8 0RF Continued irbesartan-hydrochlorothiazide 150-12.5 mg tablet 1 tablet PO DAILY quetiapine 25 mg tablet 25 mg PO HS omeprazole
== END 2023-05-24 14:30 | disposition home or self-care (01) ==
LOC: ANHED 11:55 → ANH3MEDSUR 16:24
PROVIDERS: Emergency Medicine; Internal Medicine; Nurse Practitioner; Admitting Provider Family Medicine; Emergency Provider Emergency Medicine; PCP Family Medicine; Visit Provider Internal Medicine
DX: N39.0 Urinary tract infection, site not specified (principal); B96.20 Unspecified Escherichia coli [E. coli] as the cause of diseases classified elsewhere; N17.9 Acute kidney failure, unspecified; R63.0 Anorexia; Z68.21 Body mass index [BMI] 21.0-21.9, adult; E78.00 Pure hypercholesterolemia, unspecified; I12.9 Hypertensive chronic kidney disease with stage 1 through stage 4 chronic kidney disease, or unspecified chronic kidney disease; N18.9 Chronic kidney disease, unspecified; D63.1 Anemia in chronic kidney disease; Z20.822 Contact with and (suspected) exposure to COVID-19; F41.1 Generalized anxiety disorder; R94.31 Abnormal electrocardiogram [ECG] [EKG]; F32.A Depression, unspecified; K21.9 Gastro-esophageal reflux disease without esophagitis; Z87.891 Personal history of nicotine dependence; Z85.3 Personal history of malignant neoplasm of breast; Z90.11 Acquired absence of right breast and nipple; Z79.899 Other long term (current) drug therapy; Z82.49 Family history of ischemic heart disease and other diseases of the circulatory system; Z80.3 Family history of malignant neoplasm of breast
CPT/HCPCS: 36415; 71046; 80053; 81001; 82274; 82948; 83735; 84443; 85025; 87040; 87077; 87086; 87186; 87637; 93005; 96361; 96365; 99285; A9270; G0378; J0696; J7030

== ENCOUNTER 2024-03-23 09:11 | Emergency (ER) | payer MEDICARE, SELFPAY ==
[2024-03-23] VITALS (7 sets, daily range): BP systolic 103–153; BP diastolic 66–83; PULSE 64–75; RESP 13–20; TEMP 36.7; O2SAT 99–100
--- NOTE | ~2024-03-23 | CT_ITS ---
EXAMINATION: CT abdomen pelvis wo con DATE: 03/23/2024 10:54 INDICATION: Abdominal pain TECHNIQUE: Computed tomography (CT) of the abdomen and pelvis was performed without intravenous contr ast. Automated exposure control and iterative reconstruction technique were employed. The dose-length product was 184.11 mGy-cm. COMPARISON: None FINDINGS: Mild atelectasis at the anterobasilar segment of the left lower lobe. Heart size is normal. Atheroscl erotic coronary artery calcific a wise. No pericardial or pleural effusion. Right breast implant. Sub tle gallstone within the normal-appearing nondilated gallbladder with no wall thickening or perichole cystic inflammatory stranding to suggest acute cholecystitis. Liver, spleen, pancreas, bilateral adre nal glands and right kidney are normal. 1.1 cm left renal cyst. Moderate amount of stool scattered th roughout the colon. There are few diverticula along the sigmoid colon without adjacent comparison to suggest diverticulitis. No bowel obstruction. Bladder is normal. The uterus is not identified and has likely been surgically resected. No free intraperitoneal gas or fluid. No pathologically enlarged ab dominal or pelvic lymphadenopathy. Multiple phleboliths in the pelvis. Severe lower thoracic and uppe r lumbar spondylosis. 2 mm anterolisthesis L4 on L5 with posterior spinal fusion with bilateral verti kolton mila and pedicle screw fixation. IMPRESSION: 1. Cholelithiasis without findings of acute cholecystitis. 2. Mild diverticulosis. Reviewed, dictated and finalized at location A.
--- NOTE | ~2024-03-23 | XR_ITS ---
EXAMINATION: XR chest 2V DATE: 03/23/2024 09:56 INDICATION: Sharp left-sided chest pain TECHNIQUE: frontal and lateral views of the chest were obtained. COMPARISON: Chest radiograph dated 05/22/[address] dated 07/16/2019 FINDINGS: Chronic mild lingular atelectasis/scarring at the costophrenic angle. No new airspace opacities, pulm onary edema, pleural effusion or pneumothorax. Heart size is normal. The lateral right breast implant . Moderate thoracic spondylosis with chronic mild anterior wedging at and T11 and T12. Partially visu alized vertical mila and pedicle screw fixation at L4 for a lower lumbar posterior spinal fusion. IMPRESSION: 1. Chronic atelectasis/scarring at the lingula. No acute cardiopulmonary disease. Reviewed, dictated and finalized at location A. IMPRESSION: 1. Chronic atelectasis/scarring at the lingula. No acute cardiopulmonary diseas e.
--- NOTE | 2024-03-23 09:12 | ECG_ITS ---
Test Date: 2024-03-23 11:59:51 Measurements Intervals Section Rate: 62 P: 11 VA: 176 QRS: 9 QRSD: 90 T: 20 QT: 417 QTc: 426 Interpretive Statements SINUS RHYTHM NORMAL ELECTROCARDIOGRAM Compared to ECG 03/23/2024 09:23:38 NO DIFFERENCE Electronically Signed On 03-24-2024 07:14:29 CDT by Von Swartz M.D.
--- NOTE | 2024-03-23 09:33 | ED.GENADULT ---
HPI - General Adult General Chief complaint: Urogenital-Female Stated complaint: chest pain Time Seen by Provider: 03/23/24 09:17 History of Present Illness HPI narrative: 83-year-old female present to the emergency department for evaluation for lower abdominal pain and confusion consistent with previous urinary tract infections. While patient was in route to the emergency department she did have a brief episode of left-sided chest pain. Patient denies any current chest pain. Related Data Allergies Allergy/AdvReac Type Severity Reaction Status Date / Time codeine Allergy Intermediate Nausea Verified 03/23/24 09:27 sulfamethoxazole Allergy Intermediate RASH Verified 03/23/24 09:27 trimethoprim Allergy Intermediate RASH Verified 03/23/24 09:27 ciprofloxacin Allergy Unknown Rash Verified 03/23/24 09:27 Sulfa (Sulfonamide Allergy Unknown Rash Verified 03/23/24 09:27 Antibiotics) mirtazapine AdvReac agitation Verified 03/23/24 09:27 MANY ANTIBIOTICS AdvReac Unknown RASH Uncoded 03/23/24 09:27 Review of Systems Review of Systems: All systems reviewed & are unremarkable except as noted in HPI and below PMFSH Past Medical History Medical History (Updated 03/23/24 @ 12:39 by Scott Joyner MD) Acute non-recurrent maxillary sinusitis Acute pain Anorexia Anxiety Breast cancer screening Chest pain at rest Depression Dietary counseling and surveillance (07/27/17) Dysphagia Episode of syncope Esophageal dilatation Face lesion SAM (generalized anxiety disorder) GERD (gastroesophageal reflux disease) Hip pain, bilateral History of cancer of right breast mastectomy, no lymph nodes taken History of postoperative nausea and vomiting Hyperlipidemia Other dysphagia Pain in left hip Pharyngoesophageal dysphagia Postmenopausal Postmenopausal Scalp itch Schatzki's ring Shoulder pain, left Shoulder pain, left Stomatitis Subacute ethmoidal sinusitis Syncope and collapse Tendinitis of left rotator cuff Tongue coating Vaginitis and vulvovaginitis Weakness Weight loss Weight loss Surgical History Surgical History H/O breast reconstruction R H/O cataract extraction H/O mastectomy H/O Spinal surgery L4-L5 pin H/O varicose vein stripping History of appendectomy History of dental surgery History of hysterectomy Status post right foot surgery Family History Family History Father Family history of cardiovascular disease Hypertension Mother Family history of cardiovascular disease Diabetes mellitus Family history of malignant neoplasm of breast in first degree relative Hypertension Social History Social History Social History: She lives with a daughter and has 2 children. Two sons and a daughter. 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 The patient is . Code status full code Smoking packs per day: 1 Smoking cigarettes per day: 20.0 Years smoked: 6 Smoking pack-years: 6.00 Smoking status: Former smoker Tobacco type: cigarettes Second hand tobacco smoke exposure: No Smoking end date: 10/01/70 Alcohol intake: never Substance use: never Substance use type: does not use Lack of Transportation: No Lack of Food: Never True Current Housing: I Have Housing Concerned About Future Housing: No Difficulty Paying Gas/Electric Bills: No Difficulty Paying for Meds: No Currently Unemployed: No Education: Master's Degree or Higher Difficulty w/ Childcare or Family Care: No Living arrangements: with family Occupation/Education: retired Gender identity (if verbalized by the patient): Female Sexual Orientation (if Verbalized by the Patient): Straight or Heterosexual Spiritual care concerns: No Exam Narrative: APPEARANCE: Well appearing, no pain, no distress, well-nourished. HEAD: normocephalic, a
[2024-03-23 09:44] LABS: Basophils Absolute Auto 0.1 K/mm3 (0.0-0.1); Basophils Percent Auto 1.4 % (0.2-1.2); Eosinophils Absolute Auto 0.2 K/mm3 (0-0.3); Eosinophils Percent Auto 3.8 % (0-4.4); Hemoglobin 11.2 g/dL (12.0-15.0); Immature Granulocyte Absolute 0.04 K/mm3 (0.00-0.031); Immature Granulocyte Percent A 0.7 % (0-0.5); Lymphocytes Absolute Auto 0.91 K/mm3 (0.9-3.2); Lymphocytes Percent Auto 15.7 % (18.3-44.2); Mean Corpuscular HGB Conc 33.9 g/dl (32-36); Mean Corpuscular Hemoglobin 31.1 pg (26-34); Mean Corpuscular Volume 91.7 fl (80-100); Mean Platelet Volume 9.8 fl (7.4-10.4); Monocytes Absolute Auto 0.4 K/mm3 (0.1-0.6); Monocytes Percent Auto 6.4 % (2.6-8.5); Neutrophils Absolute Auto 4.2 K/mm3 (1.3-6.7); Platelet Count Result 188 k/mm3 (150-375); White Blood Count 5.8 K/mm3 (4.5-10.0)
[2024-03-23 09:56] LABS: Alanine Aminotransferase 20 U/L (6-35); Albumin Level 4.4 g/dL (3.5-5.1); Alkaline Phosphatase 62 U/L (38-126); Anion Gap 11 mmol/L (4-12); Aspartate Amino Transferase 30 U/L (14-36); Bilirubin,Total 0.7 mg/dL (0.2-1.3); Blood Urea Nitrogen 19 mg/dL (7-17); Calcium 9.7 mg/dL (8.4-10.2); Carbon Dioxide 24 mmol/L (22-30); Chloride 102 mmol/L (98-107); Estimated CRCL calculation 18 ml/min; Estimated Glomerular Filt Rate 31; Glucose 98 mg/dL (65-110); Lipase 72 U/L (23-300); Potassium 3.8 mmol/L (3.4-5.0); Sodium 137 mmol/L (137-145)
[2024-03-23 09:58] LABS: Partial Thromboplastin Time 27.9 Seconds (22.3-36.8)
[2024-03-23 10:02] LABS: Appearance Urine Clear (Clear); Bacteria Urine None Seen /hpf; Bilirubin Urine Negative (Negative); Blood Urine Negative (Negative); Color Urine Yellow (Yellow); Glucose Urine UA Negative (Negative); Ketones Urine Negative (Negative); Leukocyte Esterase Ur Trace LEU/UL (Negative); Need Manual Microscopic Reviewed; Nitrate Urine Negative (Negative); Protein Urine Negative (Negative); Specific Grav Ur 1.015 (1.001-1.035); Squamous Epithelial Cell Urine Occasional /hpf (Few); WBC Urine 0-5 /hpf (0-3); pH Urine 7.5 (5.0-9.0)
[2024-03-23 10:05] LABS: Add Urine Microscopic? YES
[2024-03-23 10:07] LABS: Troponin I < 0.012 ng/mL (0.000-0.034)
--- NOTE | 2024-03-23 11:56 | ECG_ITS ---
Test Date: 2024-03-23 09:23:38 Measurements Intervals Arab Rate: 71 P: 18 TN: 172 QRS: 19 QRSD: 87 T: 36 QT: 384 QTc: 419 Interpretive Statements SINUS RHYTHM WITH SINUS ARRHYTHMIA NORMAL ELECTROCARDIOGRAM No previous ECG available for comparison Electronically Signed On 03-24-2024 07:10:31 CDT by Von Swartz M.D.
[2024-03-23 12:30] LABS: Troponin I < 0.012 ng/mL (0.000-0.034)
== END 2024-03-23 13:15 | disposition home or self-care (01) ==
PROVIDERS: Emergency Provider Emergency Medicine; PCP Family Medicine
DX: R10.30 Lower abdominal pain, unspecified (principal); R07.89 Other chest pain; E78.5 Hyperlipidemia, unspecified; K21.9 Gastro-esophageal reflux disease without esophagitis; Z85.3 Personal history of malignant neoplasm of breast; Z98.49 Cataract extraction status, unspecified eye; Z90.710 Acquired absence of both cervix and uterus; Z87.891 Personal history of nicotine dependence; K80.20 Calculus of gallbladder without cholecystitis without obstruction; K57.90 Diverticulosis of intestine, part unspecified, without perforation or abscess without bleeding
CPT/HCPCS: 36415; 71046; 74176; 80053; 81001; 83690; 84484; 85025; 85610; 85730; 93005; 99284

== ENCOUNTER 2025-01-11 16:49 | Emergency (ER) | payer MEDICARE, SELFPAY ==
--- NOTE | ~2025-01-11 | CT_ITS ---
EXAMINATION: CT brain wo con DATE: 01/11/2025 17:25 INDICATION: fall . TECHNIQUE: Computed tomography (CT) of the head was performed without intravenous contrast. The mA wa s adjusted according to patient size. Iterative reconstruction technique was employed. The dose-lengt h product was 605.33 mGy-cm. COMPARISON: 07/16/2019; MR brain 07/17/2019. FINDINGS: No acute intracranial hemorrhage or extra-axial fluid collection. No hydrocephalus, mass, or herniation. No acute ischemic infarct. Unremarkable dural venous sinus attenuation. No acute osseous abnormality. Scalp laceration near the vertex. Right maxillary retention cyst/polyp, right posterior ethmoid sinus mucosal thickening and secretions , the remaining aerated spaces are clear. Moderate atrophy and chronic white matter change. Atherosclerotic intracranial calcification. Bilater al lens replacements. 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 IMPRESSION: No acute intracranial process. Reviewed, dictated and finalized at location K.
--- NOTE | ~2025-01-11 | CT_ITS ---
EXAMINATION: CT cervical spine wo con DATE: 01/11/2025 17:25 INDICATION: fall TECHNIQUE: Computed tomography (CT) of the cervical spine was performed without intravenous contrast. Automated exposure control and iterative reconstruction technique were employed. The dose-length pro duct was 121.02 mGy-cm. COMPARISON: 07/16/2019. FINDINGS: Vertebral Body Alignment: Multilevel stable grade 1 listheses. Craniocervical and atlantoaxial alignment: Moderate degenerative change. Alignment intact. Osseous structures/fracture: Stable multilevel lytic lesions, likely benign No suspicious lytic or bl astic process in the visualized spine. No evidence of acute fracture. Right C5-6 and facet fusion Cervical soft tissues: The paraspinal soft tissues planes are maintained. Degenerative changes: Multilevel degenerative disc disease and facet arthropathy. Moderate right and severe left neural foraminal narrowing at C6-7 secondary to degenerative changes. No severe central c anal narrowing. IMPRESSION: No acute fracture or traumatic malalignment in the cervical spine. Reviewed, dictated and finalized at location K.
[2025-01-11 16:51] VITALS: BP 131/83; PULSE 68; RESP 16; TEMP 36.2; O2SAT 98
--- OUTSIDE RECORDS SUMMARY | 2025-01-11 16:51 | XMS_ITS | Clinical Summary ---
Author Organization [facility] [place] [address] Address [address] [place] [address] Care Team Providers Care Archivist Name Role Phone Josefina Driscoll MD Primary Care Provider Allergies Active Allergy Reactions Criticality Noted Date Comments Ciprofloxacin Hcl Rash Medium 03/26/2017 Codeine Stomach upset Low Nitrofurantoin Rash Medium 02/14/2018 Sulfa (Sulfonamide Antibiotics) Rash Medium Sulfamethoxazole-Trimethoprim Rash Medium 2016 Sulfasalazine Rash Medium 03/26/2017 Medications ALPRAZolam (XANAX) 0.5 mg tablet Take 0.5 mg by mouth 2 (two) times a day as needed. Active buPROPion (WELLBUTRIN) 100 mg tablet Take 100 mg by mouth daily. 11/26/2017 Active traZODone (DESYREL) 50 mg tabletIndication s:may take 1-2 tablets Take 50 mg by mouth nightly. 01/18/2018 Active traMADol (ULTRAM) 50 mg tablet 0 03/18/2018 Active memantine (NAMENDA) 5 mg tablet 08/18/2019 Active Active Problems Problem Noted Date Diagnosed Date Spinal stenosis of lumbar region at multiple lev els 02/19/2018 Anxiety 03/26/2017 Depression 03/26/2017 Syncope 03/26/2017 Surgical History Surgery Date Site/Laterality Comments EYE SURGERY Bilateral cataracts MASTECTOMY Right BLADDER SURGERY stimulator LUNG BIOPSY Left abscess LUNG SURGERY Left abscess Medical History Medical History Date Comments Allergic rhinitis Gastric reflux Spinal stenosis Syncope 03/2017 syncopal episode X 1, Holter monitor followed up negative Hypertension Hyperlipidemia Urinary urgency Type 2 diabetes mellitus (HCC) b orderline Depression with anxiety Arthritis Cancer (HCC) breast Cataract PONV (postoperative nausea and vomiting) Family History Medical History Relation Name Comments Dementia Brother 1 Heart disease Brother 2 Pneumonia Father Cancer Mother Diabetes Mother Heart disease Mother Diabetes Mother's Brother Cancer Mother's Sister Diabetes Mother's Sister Cancer Sister Relation Name Status Comments Brother 1 Brother 2 Father (Age 84) Mother (Age 84) Mother's Brother Mother's Sister Sister Social History Tobacco Use Types Packs/Day Years Used Date Smoking Tobacco: Former Cigarettes Q uit: 02/14/1978 Smokeless Tobacco: Never Alcohol Use Standard Drinks/Week Comments Yes 0 (1 standard drink = 0.6 oz pur e alcohol) rarely Personal Safety Answer Date Recorded Getting School Help Needed Not on file 12/14 Comments No Sex and Gender Information Value Date Recorded Sex Assigned at Not on file Legal Sex Female 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 Gender Identity Not on file Sexual Orientation Not on file Occupation Industry Job Start Date Job End Date retired Not on file Not on file Not on file Obstetrics History Last Filed Vital Signs Vital Sign Reading Time Taken Comments Blood Pressure 118/68 08/22/2019 1:16 PM WELDING ENGINEER Pulse 74 08/22/2019 1:16 PM WELDING ENGINEER Temperature 36.4 C (97.6 F) 03/20/2018 8:03 PM CDT Respiratory Rate 20 03/20/2018 8:03 PM CDT Oxygen Saturation 97% 08/22/2019 1:16 PM WELDING ENGINEER Inhaled Oxygen Concentration - - Weight 52.6 kg (116 lb) 08/22/2019 1:16 PM WELDING ENGINEER Height 152.4 cm (5') 08/22/2019 1:16 PM WELDING ENGINEER Body Mass Index 22.65 08/22/2019 1:16 PM WELDING ENGINEER Plan of Treatment Not on file Medical Devices Implanted Type Area Traffic Representative Device Identifier Shelf Expiration Date Model / Serial / Lot Graft Bone Vivigen Vasquez Canc Demineralized 1cc Allograft - [id number] - [id number] Implanted:Qty: 1 on 02/18/2018 by Eulogio Hall MD at [facility] Bone N/A: Spine Lumbar Lifenet 03/24/2018 [id number] / [id number] / Concorde Proti 5 Dg [id number] Implanted:Qty: 2 on 02/18/2018 by Eulogio Hall MD at [facility] N/A: Spine Lumbar Depuy Synthes Spine 11/06/2022 [id number] / / [id number] Description:Implant L4-L5 sp dewey Screw Set Titanium Od5.5 Mm Spine 1 Inner Nonsterile Viper - [id number] Implanted:Qty: 4 on 02/18/2018 by Eulogio Hall MD at [facility] N/A: Spine Lumbar Depuy Spine [id number] / / Screw Bone 6mm 40mm Viper Prime Spine Polyax Extend Tab - [id number] Implanted:Qty: 4 on 02/18/2018 by Eulogio Hall MD at [facility] N/A: Spine Lumbar Depuy Synthes Spine [id number] / / Marcel Spinal Viper 2 Titanium Lordotic L40 Mm Mis - [id number] Implanted:Qty: 2 on 02/18/2018 by Eulogio Hall MD at [facility] N/A: Spine Lumbar Depuy Spine [id number] / / Explanted Type Area Traffic Representative Device Identifier Shelf Expiration Date Model / Serial / Lot Guide Wire Blunt Threaded 1.45mm - [id number] Explanted:Qty : 1 on 02/18/2018 at [facility] N/A: Spine Lumbar Depuy Synthes Spine [id number] / / Insurance MEDICARE ADVANTAGE MEDICARE ADVANTAGE MEDICARE ADVANTAGE Advance Directives For more information, please contact: [phone] * Full Code (Latest Code Status on File) Date Activated Date Inactivated Comments 02/18/2018 1:47 PM 02/20/2018 7:17 PM * Full Code Date Activated Date Inactivated Comments 01/28/2018 1:02 PM 01/29/2018 2:47 AM Care Teams Archivist Relationship Specialty Start Date End Date Josefina Driscoll MD [address] [facility] [address] [place] [address] PCP - General Family Medicine 04/18/17
--- OUTSIDE RECORDS SUMMARY | 2025-01-11 16:51 | XMS_ITS | Referral Summary ---
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 Gender Identity Not on file Sexual Orientation Not on file Occupation Industry Job Start Date Job End Date retired Not on file Not on file Not on file Last Filed Vital Signs Vital Sign Reading Time Taken Comments Blood Pressure 118/68 08/22/2019 1:16 PM CORPORATE INVESTIGATOR Pulse 74 08/22/2019 1:16 PM CORPORATE INVESTIGATOR Temperature 36.4 C (97.6 F) 03/20/2018 8:03 PM CDT Respiratory Rate 20 03/20/2018 8:03 PM CDT Oxygen Saturation 97% 08/22/2019 1:16 PM CORPORATE INVESTIGATOR Inhaled Oxygen Concentration - - Weight 52.6 kg (116 lb) 08/22/2019 1:16 PM CORPORATE INVESTIGATOR Height 152.4 cm (5') 08/22/2019 1:16 PM CORPORATE INVESTIGATOR Body Mass Index 22.65 08/22/2019 1:16 PM CORPORATE INVESTIGATOR Plan of Treatment Not on file Medical Devices Implanted Type Area Manager Ed Device Identifier Shelf Expiration Date Model / Serial / Lot Graft Bone Vivigen Vasquez Canc Demineralized 1cc Allograft - [id number] - [id number] Implanted:Qty: 1 on 02/18/2018 by Eulogio Hall MD at [facility] N/A: Spine Lumbar Lifenet 03/24/2018 BL-1500-001 / [id number] / Concorde Proti 5 Dg [id number] Implanted:Qty: 2 on 02/18/2018 by Eulogio Hall MD at [facility] N/A: Spine Lumbar Depuy Synthes Spine 11/06/2022 [id number] / / [id number] Description:Implant L4-L5 sp dewey Screw Set Titanium Od5.5 Mm Spine 1 Inner Nonsterile Viper - [id number] Implanted:Qty: 4 on 02/18/2018 by Eulogio Hall MD at [facility] N/A: Spine Lumbar Depuy Spine [id number] / / Screw Bone 6mm 40mm Viper Prime Spine Polyax Extend Tab - [id number] Implanted:Qty: 4 on 02/18/2018 by Eulogio Hall MD at [facility] N/A: Spine Lumbar Depuy Synthes Spine [id number] / / Marcel Spinal Viper 2 Titanium Lordotic L40 Mm Mis - [id number] Implanted:Qty: 2 on 02/18/2018 by Eulogio Hall MD at [facility] N/A: Spine Lumbar Depuy Spine [id number] / / Explanted Type Area Manager Ed Device Identifier Shelf Expiration Date Model / Serial / Lot Guide Wire Blunt Threaded 1.45mm - [id number] Explanted:Qty : 1 on 02/18/2018 at [facility] N/A: Spine Lumbar Depuy Synthes Spine [id number] / / Insurance MEDICARE ADVANTAGE [facility] Address: [address] [address] MEDICARE ADVANTAGE [facility] Address: [address] [address] [facility] MEDICARE ADVANTAGE [facility] Address: [facility] [address] [place] [address] Advance Directives For more information, please contact: [phone] * Full Code (Latest Code Status on File) Date Activated Date Inactivated Comments 02/18/2018 1:47 PM 02/20/2018 7:17 PM * Full Code Date Activated Date Inactivated Comments 01/28/2018 1:02 PM 01/29/2018 2:47 AM Care Teams Hairpiece Stylist Relationship Specialty Start Date End Date Josefina Driscoll MD [address] [facility] [address] [place] [id number] PCP - General Family Medicine 04/18/17
--- OUTSIDE RECORDS SUMMARY | 2025-01-11 16:51 | XMS_ITS | Continuity of Care Document ---
Author Organization [facility] Address [address] [place] [address] Phone Care Team Providers Care Brand Ambassadors Promotional Sales Name Role Phone Rafita Miner Unavailable Unavailable Procedures Procedure Date Office/outpatient Visit, Est Eye Exam & Treatment Refraction Eye Exam & Treatment Refraction Advance Directives Directive Yes / No Effective Date File Name No Information Encounters Encounter Description Practice Location Reason(s) For Visit Diagnoses Date Provider Providers Copied on Encounter Office/outpat ient Visit, Est [facility], [address] [place] [address] [address], [place], [place], [id number], [place] tel:[phone] [facility] No Information 4-201 0 Kristofer Eller. [address], [place], [place], [facility], . tel:[phone] [facility], [address], [place], [place], [address], [place] tel:[phone] [facility] No Information 7-200 9 Kristofer Eller. [address] , [address], [place], [place], [facility], . tel:[phone] [facility], [address], [place], [place], [id number], [place] tel:[phone] [facility] No Information Nov-2 1-200 8 Kristofer Eller. [address] , [address], [place], [address], [place]. tel:[phone] Family History Family Member Type Diagnosis Age At Onset No Information Payers Payer name Insurance type Covered alliance party ID Authoriza tion(s) No Information Social [...]
--- OUTSIDE RECORDS SUMMARY | 2025-01-11 17:17 | XMS_ITS | Continuity of Care Document ---
Author Organization [facility] Address [address] [place] [address] Phone Care Team Providers Care Power Equipment Mechanics Instructor Name Role Phone Rafita Miner Unavailable Unavailable Procedures Procedure Date Office/outpatient Visit, Est Eye Exam & Treatment Refraction Eye Exam & Treatment Refraction Advance Directives Directive Yes / No Effective Date File Name No Information Encounters Encounter Description Practice Location Reason(s) For Visit Diagnoses Date Provider Providers Copied on Encounter Office/outpat ient Visit, Est [facility], [id number] [place] [address] [address], [place], [place], [id number], [place] tel:[phone] [facility] No Information 4-201 0 Kristofer Eller. [address] , [address], [place], [place], [facility], . tel:[phone] [facility], [address], [place], [place], [address], [place] tel:[phone] [facility] No Information 7-200 9 Kristofer Eller. [address] , [address], [place], [place], [facility], . tel:[phone] [facility], [address], [place], [place], [id number], [place] tel:[phone] [facility] No Information Nov-2 1-200 8 Kristofer Eller. [address] , [address], [place], [address], [place]. tel:[phone] Family History Family Member Type Diagnosis Age [...]
--- OUTSIDE RECORDS SUMMARY | 2025-01-11 17:17 | XMS_ITS | Referral Summary ---
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 TRAINING INSTRUCTOR Gender Identity Not on file Sexual Orientation Not on file Occupation Industry Job Start Date Job End Date retired Not on file Not on file Not on file Last Filed Vital Signs Vital Sign Reading Time Taken Comments Blood Pressure 118/68 08/22/2019 1:16 PM VOCATIONAL TRAINING INSTRUCTOR Pulse 74 08/22/2019 1:16 PM VOCATIONAL TRAINING INSTRUCTOR Temperature 36.4 C (97.6 F) 03/20/2018 8:03 PM CDT Respiratory Rate 20 03/20/2018 8:03 PM CDT Oxygen Saturation 97% 08/22/2019 1:16 PM VOCATIONAL TRAINING INSTRUCTOR Inhaled Oxygen Concentration - - Weight 52.6 kg (116 lb) 08/22/2019 1:16 PM VOCATIONAL TRAINING INSTRUCTOR Height 152.4 cm (5') 08/22/2019 1:16 PM VOCATIONAL TRAINING INSTRUCTOR Body Mass Index 22.65 08/22/2019 1:16 PM VOCATIONAL TRAINING INSTRUCTOR Plan of Treatment Not on file Medical Devices Implanted Type Area Insurance Solicitor Device Identifier Shelf Expiration Date Model / Serial / Lot Graft Bone Vivigen Vasquez Canc Demineralized 1cc Allograft - [id number] - [id number] Implanted:Qty: 1 on 02/18/2018 by Eulogio Hall MD at [facility] N/A: Spine Lumbar Lifenet 03/24/2018 BL-1500-001 / [id number] / Concorde Proti 5 Dg [id number] Implanted:Qty: 2 on 02/18/2018 by Eulogio Hall MD at [facility] N/A: Spine Lumbar Depuy Synthes Spine 11/06/2022 [id number] / / [id number] Description:Implant L4-L5 sp dewey Screw Set Titanium Od5.5 Mm Spine 1 Inner Nonsterile Viper - [id number] Implanted:Qty: 4 on 02/18/2018 by Eulogio Hall MD at [facility] N/A: Spine Lumbar Depuy Spine [id number] / / Screw Bone 6mm 40mm Viper Prime Spine Polyax Extend Tab - [id number] Implanted:Qty: 4 on 02/18/2018 by Eulogio Hall MD at [facility] N/A: Spine Lumbar Depuy Synthes Spine [id number] / / Marcel Spinal Viper 2 Titanium Lordotic L40 Mm Mis - [id number] Implanted:Qty: 2 on 02/18/2018 by Eulogio Hall MD at [facility] N/A: Spine Lumbar Depuy Spine [id number] / / Explanted Type Area Insurance Solicitor Device Identifier Shelf Expiration Date Model / Serial / Lot Guide Wire Blunt Threaded 1.45mm - [id number] Explanted:Qty : 1 on 02/18/2018 at [facility] N/A: Spine Lumbar Depuy Synthes Spine [id number] / / Insurance MEDICARE ADVANTAGE MEDICARE ADVANTAGE [facility] MEDICARE ADVANTAGE Advance Directives For more information, please contact: [phone] * Full Code (Latest Code Status on File) Date Activated Date Inactivated Comments 02/18/2018 1:47 PM 02/20/2018 7:17 PM * Full Code Date Activated Date Inactivated Comments 01/28/2018 1:02 PM 01/29/2018 2:47 AM Care Teams Mechanical Engineering Technician Relationship Specialty Start Date End Date Josefina Driscoll MD [address] [facility] [address] [place] [phone] PCP - General Family Medicine 04/18/17
--- OUTSIDE RECORDS SUMMARY | 2025-01-11 17:17 | XMS_ITS | Clinical Summary ---
Author Organization [facility] [address] Address [address] [place] [address] Care Team Providers Care Mix Crusher Operator Name Role Phone Josefina Driscoll MD Primary [...] on file Legal Sex Female 12:23 AM SOUNDSCRIBER MECHANIC Gender Identity Not on file Sexual Orientation Not on file Occupation Industry Job Start Date Job End Date retired Not on file Not on file Not on file Obstetrics History Last Filed Vital Signs Vital Sign Reading Time Taken Comments Blood Pressure 118/68 08/22/2019 1:16 PM SOUNDSCRIBER MECHANIC Pulse 74 08/22/2019 1:16 PM SOUNDSCRIBER MECHANIC Temperature 36.4 C (97.6 F) 03/20/2018 8:03 PM CDT Respiratory Rate 20 03/20/2018 8:03 PM CDT Oxygen Saturation 97% 08/22/2019 1:16 PM SOUNDSCRIBER MECHANIC Inhaled Oxygen Concentration - - Weight 52.6 kg (116 lb) 08/22/2019 1:16 PM SOUNDSCRIBER MECHANIC Height 152.4 cm (5') 08/22/2019 1:16 PM SOUNDSCRIBER MECHANIC Body Mass Index 22.65 08/22/2019 1:16 PM SOUNDSCRIBER MECHANIC Plan of Treatment Not on file Medical Devices Implanted Type Area Plating Department Helper Device Identifier Shelf Expiration Date Model / Serial / Lot Graft Bone Vivigen Vasquez Canc Demineralized 1cc Allograft - [id number] - [id number] Implanted:Qty: 1 on 02/18/2018 by Eulogio Hall MD at [facility] N/A: Spine Lumbar Lifenet 03/24/2018 BL-1500-001 / [id number] / Concorde Proti 5 Dg [id number] Implanted:Qty: 2 on 02/18/2018 by Eulogio Hall MD at [facility] N/A: Spine Lumbar Depuy Synthes Spine 11/06/2022 [id number] / / [id number] Description:Implant L4-L5 sp dewey Screw Set Titanium Od5.5 Mm Spine 1 Inner Nonsterile Viper - [id number] Implanted:Qty: 4 on 02/18/2018 by Eulogio Hall MD at [facility] N/A: Spine Lumbar Depuy Spine [id number] / / Screw Bone 6mm 40mm Viper Prime Spine Polyax Extend Tab - [id number] Implanted:Qty: 4 on 02/18/2018 by Eulogio Hall MD at [facility] N/A: Spine Lumbar Depuy Synthes Spine [id number] / / Marcel Spinal Viper 2 Titanium Lordotic L40 Mm Mis - [id number] Implanted:Qty: 2 on 02/18/2018 by Euolgio Hall MD at [facility] N/A: Spine Lumbar Depuy Spine [id number] / / Explanted Type Area Plating Department Helper Device Identifier Shelf Expiration Date Model / Serial / Lot Guide Wire Blunt Threaded 1.45mm - [id number] Explanted:Qty : 1 on 02/18/2018 at [facility] N/A: Spine Lumbar Depuy Synthes Spine [id number] / / Insurance MEDICARE ADVANTAGE MEDICARE ADVANTAGE MEDICARE ADVANTAGE Advance Directives For more information, please contact: [phone] * Full Code (Latest Code Status on File) Date Activated Date Inactivated Comments 02/18/2018 1:47 PM 02/20/2018 7:17 PM * Full Code Date Activated Date Inactivated Comments 01/28/2018 1:02 PM 01/29/2018 2:47 AM Care Teams Mix Crusher Operator Relationship Specialty Start Date End Date Josefina Driscoll MD [address] [facility] [address] [place] [address] PCP - General Family Medicine 04/18/17
--- NOTE | 2025-01-11 17:46 | ED_ITS ---
HPI - Wound/Laceration General Chief Complaint: Wound/Laceration Stated Complaint: Head injury after falling-lost balance Time Seen by Provider: 01/11/25 17:01 Source: patient and family Mode of arrival: ambulatory Limitations: no limitations History of Present Illness HPI narrative: This is a 84 year old female that presents to the ER for a fall today with head injury. Reports she fell getting out of the bathtub. Reports hitting her head. She did not lose consciousness. Denies any other injuries or focal areas of pain. Reports laceration to the scalp. Unsure of last tetanus vaccination. She is not on anticoagulation. Denies vision changes, vomiting, numbness, weakness. Related Data Allergies Allergy/AdvReac Type Severity Reaction Status Date / Time codeine Allergy Intermediate Nausea Verified 12/03/24 13:35 sulfamethoxazole Allergy Intermediate RASH Verified 12/03/24 13:35 trimethoprim Allergy Intermediate RASH Verified 12/03/24 13:35 ciprofloxacin Allergy Unknown Rash Verified 12/03/24 13:35 Sulfa (Sulfonamide Allergy Unknown Rash Verified 12/03/24 13:35 Antibiotics) donepezil (From Aricept) AdvReac Intermediate Vomiting Verified 01/09/25 15:37 mirtazapine AdvReac agitation Verified 12/03/24 13:35 MANY ANTIBIOTICS AdvReac Unknown RASH Uncoded 12/03/24 13:35 Review of Systems Review of Systems: CONSTITUTIONAL: Denies fever EYES: Denies visual changes GASTROINTESTINAL: Denies vomiting MUSCULOSKELETAL: Denies back pain, joint pain, or myalgia. NEUROLOGIC: Denies numbness, or weakness. All systems reviewed & are unremarkable except as noted in HPI and below PMFSH Past Medical History Medical History (Updated 01/11/25 @ 18:49 by Kathrine Fierro PA-C) JOHANNA (acute kidney injury) Weight loss Postmenopausal Vaginitis and vulvovaginitis Tongue coating Subacute ethmoidal sinusitis Pharyngoesophageal dysphagia Pain in left hip Other dysphagia Hip pain, bilateral Face lesion Dietary counseling and surveillance (07/27/17) Chest pain at rest Anorexia Acute non-recurrent maxillary sinusitis Tendinitis of left rotator cuff History of postoperative nausea and vomiting Weight loss Shoulder pain, left Shoulder pain, left Scalp itch Breast cancer screening Postmenopausal Stomatitis Acute pain Syncope and collapse SAM (generalized anxiety disorder) Episode of syncope Esophageal dilatation Schatzki's ring History of cancer of right breast mastectomy, no lymph nodes taken Depression Anxiety GERD (gastroesophageal reflux disease) Hyperlipidemia Dysphagia Weakness Surgical History Surgical History Status post right foot surgery H/O varicose vein stripping H/O Spinal surgery L4-L5 pin History of appendectomy H/O cataract extraction History of dental surgery History of hysterectomy H/O breast reconstruction R H/O mastectomy Family History Family History Father Family history of cardiovascular disease Hypertension Mother Family history of cardiovascular disease Diabetes mellitus Family history of malignant neoplasm of breast in first degree relative Hypertension Social History Social History Social History: She lives with a daughter and has 2 children. Two sons and a daughter. 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 The patient is . Code status full code Smoking packs per day: 1 Smoking cigarettes per day: 20.0 Years smoked: 6 Smoking pack-years: 6.00 Smoking status: Former smoker Tobacco type: cigarettes Second hand tobacco smoke exposure: No Smoking end date: 10/01/70 Alcohol intake: never Substance use: never Substance use type: does not use Lack of Transportation: No Lack of Food: Never True Current Housing: I Have Housing Concerned About Future Housing: No Difficulty Paying Gas/Electric Bills: No Difficulty Paying for Meds: No Currently Unemployed: No Education: Master's Degree or Higher Difficulty w/ Childcare or Family Care: No Living arrangements: with family Occupation/Education: retired Gender identity (if verbalized by the patient): Female Sexual Orientation (if Verbalized by the Patient): Straight or Heterosexual Spiritual care concerns: No Exam Narrative: GENERAL: Elderly, well-nourished, and in no acute distress. HEAD: Normocephalic. 2.5cm linear laceration into subcutaneous tissue to the posterior scalp EYES: PERRLA and EOMI. ENT: Nares clear, no rhinorrhea or epistaxis. Mucous membranes moist. Oropharynx without tonsillar hypertrophy exudate or other lesions. Bilateral TMs pearly dugan non-bulging NECK: Supple. No adenopathy or masses. CHEST: Clear to auscultation. No respiratory distress. No wheezes rales or rhonchi HEART: Regular rate and rhythm. No murmur heard. Normal peripheral pulses. EXTREMITIES: Normal range of motion. No edema or obvious deformity. Strength equal in bilateral upper and lower extremities (5/5) SKIN: Warm, dry, no rash. NEURO: No focal deficits. Alert and oriented x3. CN II-XII grossly intact PSYCH: Normal mood and affect Course Course Emergency Course: Patient and family updated on workup and agree with plan of care Vital Signs Vital signs: Vital Signs Temperature 97.2 F L 01/11/25 16:51 Pulse Rate 68 01/11/25 16:51 Respiratory Rate 16 01/11/25 16:51 Blood Pressure 131/83 01/11/25 16:51 Pulse Oximetry 98 01/11/25 16:51 Temperature 97.2 F L 01/11/25 16:51 Pulse Rate 68 01/11/25 16:51 Respiratory Rate 16 01/11/25 16:51 Blood Pressure 131/83 01/11/25 16:51 Pulse Oximetry 98 01/11/25 16:51 Procedures Laceration Laceration 1: Date: 01/11/25 Time: 18:51 Site: scalp Size (cm): 2.5 Description: linear Depth: simple, single layer Local Anesthetic: lidocaine 1% and with epi Amount of anesthesia used (mL): 4 Pre-repair: wound explored and irrigated ====== Skin Level ====== Skin layer closed with: carlos Number of sutures: 4 ====== Subcutaneous Layer ====== ====== Muscle Layer ====== ====== Tendon Layer ====== MDM - Wound/Laceration MDM Narrative Medical decision making narrative: Patient presents the emergency department after a fall today with head injury. Patient is neurologically intact at baseline. Her vitals are stable. CT brain and cervical spine without acute findings. Patient's wound was irrigated and closed with carlos. Patient family updated on workup and agree with plan of care. She is to follow up with primary provider. She was given warnings to return to the ER Differential Diagnosis Differential diagnosis: Likely laceration, abrasion, avulsion of skin and other (Subdural hematoma, cervical spine fracture, concussion, contusion) Imaging Data Radiologist's impression: ITS Impressions Head CT 01/11/25 17:35 IMPRESSION: No acute intracranial process. Cervical Spine CT 01/11/25 17:59 IMPRESSION: No acute fracture or traumatic malalignment in the cervical spine. Critical Care Time Critical Care Time Critical Care Time: No Discharge Plan Discharge Clinical Impression: Head injury Qualifiers: Encounter type: initial encounter Qualified Code(s): S09.90XA - Unspecified injury of head, initial encounter Laceration of scalp Qualifiers: Encounter type: initial encounter Qualified Code(s): S01.01XA - Laceration without foreign body of scalp, initial encounter Patient Disposition: Home Condition: Stable Instructions: Head Injury (ED), Staple Care (ED) Additional Instructions: Return to the emergency department if you experience fever, chest pain, shortness of breath, abdominal pain with nausea and vomiting, weakness, numbness, or any other symptoms that are concerning to you. Rest. Ice to the area. Jlig-dks-huqyzkm pain medication as needed. You may let the water run over the wound in the shower. Avoid harsh scrubbing to the area Follow up with your primary care doctor in 7-10 days for staple removal Patient Language: [place] Prescriptions: No Action ondansetron HCl 4 mg tablet 4 mg PO Q8H PRN (Reason: nausea and vomiting) Qty: 20 0RF tramadol 50 mg tablet 25 mg PO Q6H PRN (Reason: pain) Qty: 30 0RF bupropion HCl 100 mg tablet See Rx Instructions .ROUTE .COMPLEX Qty: 90 1RF Dose Instruction: TAKE ONE TABLET BY MOUTH DAILY Rx Instructions: TAKE ONE TABLET BY MOUTH DAILY irbesartan-hydrochlorothiazide 150-12.5 mg tablet See Rx Instructions .ROUTE .COMPLEX Qty: 90 1RF Dose Instruction: TAKE ONE TABLET BY MOUTH EVERY DAY Rx Instructions: TAKE ONE TABLET BY MOUTH EVERY DAY memantine 5 mg tablet See Rx Instructions .ROUTE .COMPLEX Qty: 180 1RF Dose Instruction: TAKE ONE TABLET (5MG) BY MOUTH TWICE A DAY Rx Instructions: TAKE ONE TABLET (5MG) BY MOUTH TWICE A DAY rosuvastatin 10 mg tablet See Rx Instructions .ROUTE .COMPLEX Qty: 90 3RF Dose Instruction: TAKE ONE TABLET BY MOUTH DAILY Rx Instructions: TAKE ONE TABLET BY MOUTH DAILY quetiapine 25 mg tablet See Rx Instructions .ROUTE .COMPLEX Qty: 90 3RF Dose Instruction: TAKE ONE TABLET BY MOUTH EVERY NIGHT AT BEDTIME Rx Instructions: TAKE ONE TABLET BY MOUTH EVERY NIGHT AT BEDTIME paroxetine HCl 10 mg tablet See Rx Instructions .ROUTE .COMPLEX Qty: 90 1RF Dose Instruction: TAKE ONE TABLET BY MOUTH EVERY DAY Rx Instructions: TAKE ONE TABLET BY MOUTH EVERY DAY omeprazole 40 mg capsule,delayed release(DR/EC) See Rx Instructions .ROUTE .COMPLEX Qty: 90 1RF Dose Instruction: TAKE 1 CAPSULE BY MOUTH DAILY Rx Instructions: TAKE 1 CAPSULE BY MOUTH DAILY Follow-up/Referrals: Luca Jackman MD [Primary Care Provider] - 1 Week
[2025-01-11] MEDS: TETANUS,DIPHTHERIA,AC PERTUSSIS ADULT (0.5 ML) BOOSTRIX IM (17:56)
== END 2025-01-11 19:02 | disposition home or self-care (01) ==
PROVIDERS: Emergency Provider Physician Assistant; PCP Family Medicine
DX: S01.01XA Laceration without foreign body of scalp, initial encounter (principal); Z23 Encounter for immunization; E78.5 Hyperlipidemia, unspecified; K21.9 Gastro-esophageal reflux disease without esophagitis; F41.1 Generalized anxiety disorder; F32.A Depression, unspecified; Z85.3 Personal history of malignant neoplasm of breast; Z87.891 Personal history of nicotine dependence; Z98.49 Cataract extraction status, unspecified eye; Z90.710 Acquired absence of both cervix and uterus; Z90.11 Acquired absence of right breast and nipple; Z79.899 Other long term (current) drug therapy; W18.2XXA Fall in (into) shower or empty bathtub, initial encounter
CPT/HCPCS: 12001; 70450; 72125; 90471; 90715; 99284

== ENCOUNTER 2025-04-05 10:15 | Outpatient (CLI) | payer MEDICARE, SELFPAY ==
--- NOTE | ~2025-04-05 | CT_ITS ---
EXAM: CT brain wo con - 04/05/2025 10:25 CDT History: 84 years old Female with R26.89 - Other abnormalities of gait and mobility COMPARISON: 01/11/2025 PROCEDURE: CT of the head without contrast. Axial, sagittal and coronal reformatted planes were danny luated. Automatic exposure control was used for this study. FINDINGS: BRAIN PARENCHYMA: No acute hemorrhage. No mass effect or herniation. Hayes-white matter differentiatio n is maintained. Mild chronic volume loss. Scattered hypodensities in subcortical and periventricular white matter, likely representing chronic microvascular ischemic changes in this age group. Atherosc lerotic calcification of the intracranial vessels is noted. VENTRICLES/ EXTRA-AXIAL SPACES: No hydrocephalus or extra-axial fluid collection. EXTRACRANIAL STRUCTURES: No calvarial fracture. IMPRESSION: No evidence for acute intracranial hemorrhage or calvarial fracture. Reviewed, dictated and finalized at location A.
--- OUTSIDE RECORDS SUMMARY | 2025-04-05 10:18 | XMS_ITS | Clinical Summary ---
Author Organization [facility] [address] Address [address] [place] [address] Care Team Providers Care Shovel Logger Name Role Phone Josefina Driscoll MD Primary [...] on file Legal Sex Female 12:23 AM SUPPLY MANAGER Gender Identity Not on file Sexual Orientation Not on file Occupation Industry Job Start Date Job End Date retired Not on file Not on file Not on file Obstetrics History Last Filed Vital Signs Vital Sign Reading Time Taken Comments Blood Pressure 118/68 08/22/2019 1:16 PM SUPPLY MANAGER Pulse 74 08/22/2019 1:16 PM SUPPLY MANAGER Temperature 36.4 C (97.6 F) 03/20/2018 8:03 PM CDT Respiratory Rate 20 03/20/2018 8:03 PM CDT Oxygen Saturation 97% 08/22/2019 1:16 PM SUPPLY MANAGER Inhaled Oxygen Concentration - - Weight 52.6 kg (116 lb) 08/22/2019 1:16 PM SUPPLY MANAGER Height 152.4 cm (5') 08/22/2019 1:16 PM SUPPLY MANAGER Body Mass Index 22.65 08/22/2019 1:16 PM SUPPLY MANAGER Plan of Treatment Not on file Medical Devices Implanted Type Area Rail Car Repairer Device Identifier Shelf Expiration Date Model / Serial / Lot Graft Bone Vivigen Vasquez Canc Demineralized 1cc Allograft - [id number] - [id number] Implanted:Qty: 1 on 02/18/2018 by Eulogio Hall MD at [facility] Bone N/A: Spine Lumbar Lifenet 03/24/2018 BL-1500-001 / [id number] / Concorde Proti 5 Dg [id number] Implanted:Qty: 2 on 02/18/2018 by Eulogio Hall MD at [facility] N/A: Spine Lumbar Depuy Synthes Spine 11/06/2022 [id number] / / [id number] Description:Implant L4-L5 sp dewey Screw Set Titanium Od5.5 Mm Spine 1 Inner Nonsterile Viper - [id number] Implanted:Qty: 4 on 02/18/2018 by Eulogio Hall MD at [facility] N/A: Spine Lumbar Depuy Spine [id number] / / Screw Bone 6mm 40mm Viper Prime Spine Polyax Extend Tab - [id number] Implanted:Qty: 4 on 02/18/2018 by Eulogio Hall MD at [facility] N/A: Spine Lumbar Depuy Synthes Spine [id number] / / Marcel Spinal Viper 2 Titanium Lordotic L40 Mm Mis - [id number] Implanted:Qty: 2 on 02/18/2018 by Eulogio Hall MD at [facility] N/A: Spine Lumbar Depuy Spine [id number] / / Explanted Type Area Rail Car Repairer Device Identifier Shelf Expiration Date Model / Serial / Lot Guide Wire Blunt Threaded 1.45mm - [id number] Explanted:Qty : 1 on 02/18/2018 at [facility] N/A: Spine Lumbar Depuy Synthes Spine [id number] / / Insurance MEDICARE ADVANTAGE [facility] MEDICARE Address: [address] [address] MEDICARE ADVANTAGE [facility] MEDICARE Address: [address] [place] [address] MEDICARE ADVANTAGE [facility] MEDICARE Address: [address] [address] Advance Directives For more information, please contact: [phone] * Full Code (Latest Code Status on File) Date Activated Date Inactivated Comments 02/18/2018 1:47 PM 02/20/2018 7:17 PM * Full Code Date Activated Date Inactivated Comments 01/28/2018 1:02 PM 01/29/2018 2:47 AM Care Teams Shovel Logger Relationship Specialty Start Date End Date Josefina Driscoll MD [address] [facility] [address] [place] [address] PCP - General Family Medicine 04/18/17
--- OUTSIDE RECORDS SUMMARY | 2025-04-05 10:18 | XMS_ITS | Referral Summary ---
Author Organization [facility] [address] Address [address] [place] [address] Care Team Providers Care Slurry Tank Operator Name Role Phone Josefina Driscoll MD [...] on file Legal Sex Female 12:23 AM TAX EXAMINER Gender Identity Not on file Sexual Orientation Not on file Occupation Industry Job Start Date Job End Date retired Not on file Not on file Not on file Last Filed Vital Signs Vital Sign Reading Time Taken Comments Blood Pressure 118/68 08/22/2019 1:16 PM TAX EXAMINER Pulse 74 08/22/2019 1:16 PM TAX EXAMINER Temperature 36.4 C (97.6 F) 03/20/2018 8:03 PM CDT Respiratory Rate 20 03/20/2018 8:03 PM CDT Oxygen Saturation 97% 08/22/2019 1:16 PM TAX EXAMINER Inhaled Oxygen Concentration - - Weight 52.6 kg (116 lb) 08/22/2019 1:16 PM TAX EXAMINER Height 152.4 cm (5') 08/22/2019 1:16 PM TAX EXAMINER Body Mass Index 22.65 08/22/2019 1:16 PM TAX EXAMINER Plan of Treatment Not on file Medical Devices Implanted Type Area Animal Cop Device Identifier Shelf Expiration Date Model / Serial / Lot Graft Bone Vivigen Vasquez Canc Demineralized 1cc Allograft - [id number] - [id number] Implanted:Qty: 1 on 02/18/2018 by Eulogio Hall MD at [facility] N/A: Spine Lumbar Lifenet 03/24/2018 BL-1500-001 / [id number] / Concorde Proti 5 Dg [id number] Implanted:Qty: 2 on 02/18/2018 by Eulogio Hall MD at [facility] N/A: Spine Lumbar Depuy Synthes Spine 11/06/2022 [id number] / / [id number] Description:Implant L4-L5 sp dewey Screw Set Titanium Od5.5 Mm Spine 1 Inner Nonsterile Viper - [id number] Implanted:Qty: 4 on 02/18/2018 by Eulogio Hall MD at [facility] N/A: Spine Lumbar Depuy Spine [id number] / / Screw Bone 6mm 40mm Viper Prime Spine Polyax Extend Tab - [id number] Implanted:Qty: 4 on 02/18/2018 by Eulogio Hall MD at [facility] N/A: Spine Lumbar Depuy Synthes Spine [id number] / / Marcel Spinal Viper 2 Titanium Lordotic L40 Mm Mis - [id number] Implanted:Qty: 2 on 02/18/2018 by Eulogio Hall MD at [facility] N/A: Spine Lumbar Depuy Spine [id number] / / Explanted Type Area Animal Cop Device Identifier Shelf Expiration Date Model / Serial / Lot Guide Wire Blunt Threaded 1.45mm - [id number] Explanted:Qty : 1 on 02/18/2018 at [facility] N/A: Spine Lumbar Depuy Synthes Spine [id number] / / Insurance MEDICARE ADVANTAGE [facility] MEDICARE Address: [address] [address] MEDICARE ADVANTAGE [facility] MEDICARE Address: [address] [address] [facility] MEDICARE ADVANTAGE [facility] MEDICARE Address: [facility] [address] [place] [address] Advance Directives For more information, please contact: [phone] * Full Code (Latest Code Status on File) Date Activated Date Inactivated Comments 02/18/2018 1:47 PM 02/20/2018 7:17 PM * Full Code Date Activated Date Inactivated Comments 01/28/2018 1:02 PM 01/29/2018 2:47 AM Care Teams Slurry Tank Operator Relationship Specialty Start Date End Date Josefina Driscoll MD [address] [facility] [address] [place] [id number] PCP - General Family Medicine 04/18/17
--- OUTSIDE RECORDS SUMMARY | 2025-04-05 10:18 | XMS_ITS | Continuity of Care Document ---
Author Organization [facility] Address [address] [place] [address] Phone Care Team Providers Care Media Reconciliation Specialist Name Role Phone Rafita Miner Unavailable Unavailable Procedures Procedure Date Office/outpatient Visit, Est Eye Exam & Treatment Refraction Eye Exam & Treatment Refraction Advance Directives Directive Yes / No Effective Date File Name No Information Encounters Encounter Description Practice Location Reason(s) For Visit Diagnoses Date Provider Providers Copied on Encounter Office/outpat ient Visit, Est [facility], [id number] [place] [address] [address], [place], [place], [id number], [place] tel:[phone] [facility] No Information 4-201 0 Kristofer Eller. [address], [place], [place], [facility], . tel:[phone] [facility], [address], [place], [place], [id number], [place] tel:[phone] [facility] No Information 7-200 9 Kristofer Eller. [address] , [address], [place], [place], [facility], . tel:[phone] [facility], [address], [place], [place], [id number], [place] tel:[phone] [facility] No Information Nov-2 1-200 8 Kristofer Eller. [address] [facility] [address] , [address], [place], [address], [place]. tel:[phone] Family History Family Member Type Diagnosis Age [...]
== END 2025-04-05 10:16 | disposition home or self-care (01) ==
PROVIDERS: PCP Family Medicine; Visit Provider Family Medicine
DX: R26.89 Other abnormalities of gait and mobility (principal); R32 Unspecified urinary incontinence; R41.0 Disorientation, unspecified
CPT/HCPCS: 70450

== ENCOUNTER 2025-07-16 11:06 | Outpatient (CLI) | payer MEDICARE, SELFPAY ==
--- OUTSIDE RECORDS SUMMARY | 2010-02-21 04:30 | XMS_ITS | Continuity of Care Document ---
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 Phone Rafita Miner Unavailable Unavailable Procedures Procedure Date Office/outpatient Visit, Est Eye Exam & Treatment Refraction Eye Exam & Treatment Refraction Advance Directives Directive Yes / No Effective Date File Name No Information Encounters Encounter Description Practice Location Reason(s) For Visit Diagnoses Date Provider Providers Copied on Encounter Office/outpat ient Visit, Est [facility], [address] [place] [address] [address], [place], [place], [id number], [place] tel:[phone] SEC [facility] No Information 4-201 0 Kristofer Eller. [address] , [address], [place], [place], [facility], . tel:[phone] [facility], [address], [place], [place], [id number], [place] tel:[phone] SEC [facility] No Information 7-200 9 Kristofer Eller. [address] , [address], [place], [place], [facility], . tel:[phone] [facility], [address], [place], [place], [id number], [place] tel:[phone] [facility] [place] No Information Nov-2 1-200 [address] [facility] , [address], [place], [address], [place]. tel:[phone] Family History Family Member Type Diagnosis Age At Onset No Information Payers Payer name Insurance type Covered libertarian ID Authoriza tion(s) No Information Social History [...]
--- OUTSIDE RECORDS SUMMARY | 2025-07-16 13:07 | XMS_ITS | Clinical Summary ---
Author Organization [facility] [address] Address [address] [place] [address] Care Team Providers Care Glove Operator Name Role Phone Josefina Driscoll MD [...] Hyperlipidemia Urinary urgency Type 2 diabetes mellitus borderl ine Depression with anxiety Arthritis Cancer (HCC) breast [...] on file Legal Sex Female 12:23 AM METAL CASKET ASSEMBLER Gender Identity Not on file Sexual Orientation Not on file Occupation Industry Job Start Date Job End Date retired Not on file Not on file Not on file Obstetrics History Last Filed Vital Signs Vital Sign Reading Time Taken Comments Blood Pressure 118/68 08/22/2019 1:16 PM METAL CASKET ASSEMBLER Pulse 74 08/22/2019 1:16 PM METAL CASKET ASSEMBLER Temperature 36.4 C (97.6 F) 03/20/2018 8:03 PM CDT Respiratory Rate 20 03/20/2018 8:03 PM CDT Oxygen Saturation 97% 08/22/2019 1:16 PM METAL CASKET ASSEMBLER Inhaled Oxygen Concentration - - Weight 52.6 kg (116 lb) 08/22/2019 1:16 PM METAL CASKET ASSEMBLER Height 152.4 cm (5') 08/22/2019 1:16 PM METAL CASKET ASSEMBLER Body Mass Index 22.65 08/22/2019 1:16 PM METAL CASKET ASSEMBLER Plan of Treatment Not on file Medical Devices Implanted Type Area Oracle Brm Developer Device Identifier Shelf Expiration Date Model / Serial / Lot Graft Bone Vivigen Vasquez Canc Demineralized 1cc Allograft - [id number] - [id number] Implanted:Qty: 1 on 02/18/2018 by Eulogio Hall MD at [facility] Bone N/A: Spine Lumbar Lifenet 03/24/2018 BL-1500-001 / [id number] / Concorde Proti 5 Dg [id number] Implanted:Qty: 2 on 02/18/2018 by Eulogio Hall MD at [facility] N/A: Spine Lumbar Depuy Synthes Spine 11/06/2022 [id number] / / [id number] Description:Implant L4-L5 sp dewey Screw Set Titanium Od5.5 Mm Spine 1 Inner Nonsterile Viper - [id number] Implanted:Qty: 4 on 02/18/2018 by Eulogio Hall MD at [facility] N/A: Spine Lumbar Depuy Spine [id number] / / Screw Bone 6mm 40mm Viper Prime Spine Polyax Extend Tab - [id number] Implanted:Qty: 4 on 02/18/2018 by Eulogio Hall MD at [facility] N/A: Spine Lumbar Depuy Synthes Spine [id number] / / Marcel Spinal Viper 2 Titanium Lordotic L40 Mm Mis - [id number] Implanted:Qty: 2 on 02/18/2018 by Eulogio Hall MD at [facility] N/A: Spine Lumbar Depuy Spine [id number] / / Explanted Type Area Oracle Brm Developer Device Identifier Shelf Expiration Date Model / Serial / Lot Guide Wire Blunt Threaded 1.45mm - [id number] Explanted:Qty : 1 on 02/18/2018 at [facility] N/A: Spine Lumbar Depuy Synthes Spine [id number] / / Insurance MEDICARE ADVANTAGE MEDICARE ADVANTAGE MEDICARE ADVANTAGE Advance Directives For more information, please contact: [phone] * Full Code (Latest Code Status on File) Date Activated Date Inactivated Comments 02/18/2018 1:47 PM 02/20/2018 7:17 PM * Full Code Date Activated Date Inactivated Comments 01/28/2018 1:02 PM 01/29/2018 2:47 AM Care Teams Glove Operator Relationship Specialty Start Date End Date Josefina Driscoll MD [address] [facility] [address] [place] [address] PCP - General Family Medicine 04/18/17
[2025-07-16 21:18] LABS: Vitamin B12 506.0 pg/mL (239-931)
[2025-07-24 03:07] LABS: A -- Beta-amyloid 42/40 Ratio 0.130 (>0.102); Beta-amyloid 40 267.19 pg/mL (.); Beta-amyloid 42 34.84 pg/mL (.); N -- NfL, Plasma 12.00 pg/mL (0.00-9.13); T -- p-tau181 4.86 pg/mL (0.00-0.97)
== END 2025-07-16 11:07 | disposition home or self-care (01) ==
PROVIDERS: PCP Family Medicine; Visit Provider Psychiatry & Neurology Neurology
DX: F03.90 Unspecified dementia, unspecified severity, without behavioral disturbance, psychotic disturbance, mood disturbance, and anxiety (principal)
CPT/HCPCS: 36415; 82607; 82746; 83520

== ENCOUNTER 2025-08-04 09:44 | Emergency (ER) | payer MEDICARE, SELFPAY ==
--- OUTSIDE RECORDS SUMMARY | 2010-02-21 03:30 | XMS_ITS | Continuity of Care Document ---
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 Role Phone Rafita Miner Unavailable Unavailable Procedures Procedure Date Office/outpatient Visit, Est Eye Exam & Treatment Refraction Eye Exam & Treatment Refraction Advance Directives Directive Yes / No Effective Date File Name No Information Encounters Encounter Description Practice Location Reason(s) For Visit Diagnoses Date Provider Providers Copied on Encounter Office/outpat ient Visit, Est [facility], [id number] [place] [address] [address], [place], [place], [id number], [place] tel:[phone] SEC [facility] No Information 4-201 0 Kristofer Eller. [address] , [address], [place], [place], [facility], . tel:[phone] [facility], [address], [place], [place], [id number], [place] tel:[phone] [facility] No Information 7-200 9 Kristofer Eller. [address] , [address], [place], [place], [facility], . tel:[phone] [facility], [address], [place], [place], [id number], [place] tel:[phone] [facility] [place] No Information Nov-2 1-200 8 Kristofer Eller. [address] [facility] , [address], [place], [address], [place]. tel:[phone] Family History Family Member Type Diagnosis Age At Onset No Information Payers Payer name Insurance type Covered republican ID Authoriza tion(s) No Information Social History Type Description Quantity Date Captured Comments Sex Female Smoking Status No Information Chief Complaint And Reason For Visit No Information Reason For Referral Reason For Referral No Information History Of Present Illness Encounter Date Complaint History Of Prese nt Illness No Information Functional Status Date Functional Assessmen t No Information Instructions Date Instruction Additional Infor mation No Information Assessments Type Assessment Date No Information Patient Care Teams Name Effective Dates (start - stop) Status Members No Information
--- OUTSIDE RECORDS SUMMARY | 2010-02-21 03:30 | XMS_ITS | Continuity of Care Document ---
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 Name Role Phone Rafita Miner Unavailable Unavailable Procedures Procedure Date Office/outpatient Visit, Est Eye Exam & Treatment Refraction Eye Exam & Treatment Refraction Advance Directives Directive Yes / No Effective Date File Name No Information Encounters Encounter Description Practice Location Reason(s) For Visit Diagnoses Date Provider Providers Copied on Encounter Office/outpat ient Visit, Est [facility], [id number] [place] [address] [address], [place], [place], [id number], [place] tel:[phone] SEC [facility] No Information 4-201 0 Kristofer Eller. [address] , [address], [place], [place], [facility], . tel:[phone] [facility], [address], [place], [place], [id number], [place] tel:[phone] [facility] No Information 7-200 9 Kristofer Eller. [address] , [address], [place], [facility], . tel:[phone] [facility], [address], [place], [place], [id number], [place] tel:[phone] [facility] [place] No Information Nov-2 1-200 8 Kristofer Eller. [address] [facility] , [address], [place], [address], [place]. tel:[phone] Family History Family Member Type Diagnosis Age At Onset No Information Payers Payer name Insurance type Covered constitution party ID Authoriza tion(s) No Information Social History [...]
[2025-08-04 09:44] VITALS: BP 92/56; PULSE 92; RESP 18; TEMP 36.6; O2SAT 100
--- OUTSIDE RECORDS SUMMARY | 2025-08-04 10:55 | XMS_ITS | Clinical Summary ---
Author Organization [facility] [address] Address [address] [place] [address] Care Team Providers Care Hematology Technician Name Role Phone Josefina Driscoll MD [...] on file Legal Sex Female 12:23 AM FUNERAL SERVICE PRACTITIONER/EMBALMER Gender Identity Not on file Sexual Orientation Not on file Occupation Industry Job Start Date Job End Date retired Not on file Not on file Not on file Last Filed Vital Signs Vital Sign Reading Time Taken Comments Blood Pressure 118/68 08/22/2019 1:16 PM FUNERAL SERVICE PRACTITIONER/EMBALMER Pulse 74 08/22/2019 1:16 PM FUNERAL SERVICE PRACTITIONER/EMBALMER Temperature 36.4 C (97.6 F) 03/20/2018 8:03 PM CDT Respiratory Rate 20 03/20/2018 8:03 PM CDT Oxygen Saturation 97% 08/22/2019 1:16 PM FUNERAL SERVICE PRACTITIONER/EMBALMER Inhaled Oxygen Concentration - - Weight 52.6 kg (116 lb) 08/22/2019 1:16 PM FUNERAL SERVICE PRACTITIONER/EMBALMER Height 152.4 cm (5') 08/22/2019 1:16 PM FUNERAL SERVICE PRACTITIONER/EMBALMER Body Mass Index 22.65 08/22/2019 1:16 PM FUNERAL SERVICE PRACTITIONER/EMBALMER Plan of Treatment Not on file Medical Devices Implanted Type Area School Office Manager Device Identifier Shelf Expiration Date Model / Serial / Lot Graft Bone Vivigen Vasquez Canc Demineralized 1cc Allograft - [id number] - [id number] Implanted:Qty: 1 on 02/18/2018 by Eulogio Hall MD at [facility] Bone N/A: Spine Lumbar Lifenet 03/24/2018 BL-1500-001 / [id number] / Concorde Proti 5 Dg [id number] Implanted:Qty: 2 on 02/18/2018 by Eulogio Hall MD at [facility] N/A: Spine Lumbar Depuy Synthes Spine 11/06/2022 [id number] / / [id number] Description:Implant L4-L5 sp dewey Screw Set Titanium Od5.5 Mm Spine 1 Inner Nonsterile Viper - [id number] Implanted:Qty: 4 on 02/18/2018 by Eulogio Hall MD at [facility] N/A: Spine Lumbar Depuy Spine [id number] / / Screw Bone 6mm 40mm Viper Prime Spine Polyax Extend Tab - [id number] Implanted:Qty: 4 on 02/18/2018 by Eulogio Hall MD at [facility] N/A: Spine Lumbar Depuy Synthes Spine [id number] / / Marcel Spinal Viper 2 Titanium Lordotic L40 Mm Mis - [id number] Implanted:Qty: 2 on 02/18/2018 by Eulogio Hall MD at [facility] N/A: Spine Lumbar Depuy Spine [id number] / / Explanted Type Area School Office Manager Device Identifier Shelf Expiration Date Model / Serial / Lot Guide Wire Blunt Threaded 1.45mm - [id number] Explanted:Qty : 1 on 02/18/2018 at [facility] N/A: Spine Lumbar Depuy Synthes Spine [id number] / / Insurance MEDICARE ADVANTAGE MEDICARE ADVANTAGE MEDICARE ADVANTAGE Advance Directives For more information, please contact: [phone] * Full Code (Latest Code Status on File) Date Activated Date Inactivated Comments 02/18/2018 1:47 PM 02/20/2018 7:17 PM * Full Code Date Activated Date Inactivated Comments 01/28/2018 1:02 PM 01/29/2018 2:47 AM Care Teams Hematology Technician Relationship Specialty Start Date End Date Josefina Driscoll MD [address] [facility] [address] [place] [address] PCP - General Family Medicine 04/18/17
--- NOTE | 2025-08-04 12:44 | PC.NURSE ---
daughter requested to take the pt home, don't think she needs to take up a room
--- OUTSIDE RECORDS SUMMARY | 2025-08-04 14:19 | XMS_ITS | Clinical Summary ---
Author Organization [facility] [address] Address [address] [place] [address] Care Team Providers Care Watch Guard Gate Name Role Phone Josefina Driscoll MD Primary [...] on file Legal Sex Female 12:23 AM SEWING MACHINE OPERATOR ZIPPER Gender Identity Not on file Sexual Orientation Not on file Occupation Industry Job Start Date Job End Date retired Not on file Not on file Not on file Last Filed Vital Signs Vital Sign Reading Time Taken Comments Blood Pressure 118/68 08/22/2019 1:16 PM SEWING MACHINE OPERATOR ZIPPER Pulse 74 08/22/2019 1:16 PM SEWING MACHINE OPERATOR ZIPPER Temperature 36.4 C (97.6 F) 03/20/2018 8:03 PM CDT Respiratory Rate 20 03/20/2018 8:03 PM CDT Oxygen Saturation 97% 08/22/2019 1:16 PM SEWING MACHINE OPERATOR ZIPPER Inhaled Oxygen Concentration - - Weight 52.6 kg (116 lb) 08/22/2019 1:16 PM SEWING MACHINE OPERATOR ZIPPER Height 152.4 cm (5') 08/22/2019 1:16 PM SEWING MACHINE OPERATOR ZIPPER Body Mass Index 22.65 08/22/2019 1:16 PM SEWING MACHINE OPERATOR ZIPPER Plan of Treatment Not on file Medical Devices Implanted Type Area Deflash And Wash Operator Device Identifier Shelf Expiration Date Model / Serial / Lot Graft Bone Vivigen Vasquez Canc Demineralized 1cc Allograft - [id number] - [id number] Implanted:Qty: 1 on 02/18/2018 by Eulogio Hall MD at [facility] Bone N/A: Spine Lumbar Lifenet 03/24/2018 BL-1500-001 / [id number] / Concorde Proti 5 Dg [id number] Implanted:Qty: 2 on 02/18/2018 by Eulogio Hall MD at [facility] N/A: Spine Lumbar Depuy Synthes Spine 11/06/2022 [id number] / / [id number] Description:Implant L4-L5 sp dewey Screw Set Titanium Od5.5 Mm Spine 1 Inner Nonsterile Viper - [id number] Implanted:Qty: 4 on 02/18/2018 by Eulogio Hall MD at [facility] N/A: Spine Lumbar Depuy Spine [id number] / / Screw Bone 6mm 40mm Viper Prime Spine Polyax Extend Tab - [id number] Implanted:Qty: 4 on 02/18/2018 by Eulogio Hall MD at [facility] N/A: Spine Lumbar Depuy Synthes Spine [id number] / / Marcel Spinal Viper 2 Titanium Lordotic L40 Mm Mis - [id number] Implanted:Qty: 2 on 02/18/2018 by Eulogio Hall MD at [facility] N/A: Spine Lumbar Depuy Spine [id number] / / Explanted Type Area Deflash And Wash Operator Device Identifier Shelf Expiration Date Model / Serial / Lot Guide Wire Blunt Threaded 1.45mm - [id number] Explanted:Qty : 1 on 02/18/2018 at [facility] N/A: Spine Lumbar Depuy Synthes Spine [id number] / / Insurance MEDICARE ADVANTAGE [facility] MEDICARE Address: [facility] [id number] [place] [address] MEDICARE ADVANTAGE [facility] MEDICARE Address: [address] [address] MEDICARE ADVANTAGE [facility] MEDICARE Address: [address] [address] Advance Directives For more information, please contact: [phone] * Full Code (Latest Code Status on File) Date Activated Date Inactivated Comments 02/18/2018 1:47 PM 02/20/2018 7:17 PM * Full Code Date Activated Date Inactivated Comments 01/28/2018 1:02 PM 01/29/2018 2:47 AM Care Teams Watch Guard Gate Relationship Specialty Start Date End Date Josefina Driscoll MD [address] [facility] [address] [place] [address] PCP - General Family Medicine 04/18/17
== END 2025-08-04 12:46 | disposition left against medical advice (07) ==
LOC: ANHED 12:36
PROVIDERS: PCP Family Medicine
DX: R42 Dizziness and giddiness (principal)
CPT/HCPCS: 99199

== ENCOUNTER 2025-08-10 13:48 | Outpatient (CLI) | payer MEDICARE, SELFPAY ==
--- NOTE | ~2025-08-10 | MR_ITS ---
EXAM/PROCEDURE: MR brain/brain stem wo/w con HISTORY: G30.0 - Alzheimer's disease with early onset COMPARISON: 07/17/2019 TECHNIQUE: Pre and post contrast multiplanar MR of the brain performed. FINDINGS: Moderately severe diffuse volume loss, and moderately extensive periventricular T2 weighted hyperintense white matter changes including several focal T2 hyperintense lesions identified with no corresponding area of restricted diffusion or abnormal enhancement. No abnormal enhancing lesions on postcontrast series. No mass, mass effect or bleed. Brainstem and cerebellum are unremarkable. The nasal, periorbital and calvarial structures appear stable. IMPRESSION: Progression in moderately severe diffuse chronic white vessel ischemic appearing changes and volume loss. No acute ischemic event, mass or post enhancement pathology. Reviewed, dictated and finalized at location A. UCT MANAGEMENT INTERN IMPRESSION: Progression in moderately severe diffuse chronic white vessel ischemic appearin g changes and volume loss. No acute ischemic event, mass or post enhancement pa thology.
== END 2025-08-10 13:49 | disposition home or self-care (01) ==
LOC: MICIMG 13:50
PROVIDERS: PCP Family Medicine; Visit Provider Psychiatry & Neurology Neurology
DX: R90.82 White matter disease, unspecified (principal); G30.0 Alzheimer's disease with early onset; F02.83 Dementia in other diseases classified elsewhere, unspecified severity, with mood disturbance
CPT/HCPCS: 70553; A9577

== ENCOUNTER 2025-09-02 15:52 | Outpatient (CLI) | payer MEDICARE, SELFPAY ==
--- NOTE | ~2025-09-02 | US_ITS ---
EXAMINATION: US carotid duplex BI DATE: 09/02/2025 17:31 INDICATION: Carotid occlusion TECHNIQUE: Grayscale, color Doppler, and pulsed Doppler images of the cervical carotid arteries were obtained. The degree of vessel stenosis is placed in one of the following categories: normal, <50%, 50-69%, >=70% but less than near- occlusion, near-occlusion, or total occlusion. Note that percent stenosis relative to normal distal artery lumen diameter is indirectly measured from velocity measurements as described by Hakeem, et al. Radiology 2003; 229:340-346. Notes: Normal: Peak systolic velocity <125 centimeters/sec and no plaque <50%. Peak systolic velocity <125 (EDV <40; ICA/CCA PSV ratio <2.0; used these factors only a tandem lesions or low cardiac output or contralateral disease) 50-69 %: PSV 125-230 (EDV 40-100; ratio 2-4) >= 70% but less than near occlusion: PSV greater than 230 (EDV > 100; ratio> 4.0) Near Occlusion: PSV that is variable; markedly narrowed lumen Occlusion: Absent flow on color/spectral Doppler and no lumen on dugan scale. COMPARISON: None. FINDINGS: RIGHT: The right common carotid artery (CCA) peak systolic velocity (PSV) is 59 cm/s. The right internal carotid artery (ICA) PSV is 73 cm/s. The right ICA end- diastolic velocity (EDV) is 24 cm/s. The right ICA/CCA PSV ratio is 1.2. The external carotid artery (ECA) PSV is 58 cm/s. There is antegrade flow in the right vertebral artery. LEFT: The left CCA PSV is 58 cm/s. The left ICA PSV is 76 cm/s. The left ICA EDV is 13 cm/s. The left ICA/CCA PSV ratio is 1.3. The ECA PSV is 51 cm/s. There is antegrade flow in the left vertebral artery. IMPRESSION: 1. Less than 50% stenosis in the right internal carotid artery by sonographic criteria. 2. Less than 50% stenosis in the left internal carotid artery by sonographic criteria. Reviewed, dictated and finalized at location I. IER OR CHECKER STOCK CLERK IMPRESSION: 1. Less than 50% stenosis in the right internal carotid artery by sonographic mary watson. 2. Less than 50% stenosis in the left internal carotid artery by sonographic ariadna long.
--- OUTSIDE RECORDS SUMMARY | 2025-09-02 17:00 | XMS_ITS | Clinical Summary ---
Author Organization [facility] [address] Address [address] [place] [address] Care Team Providers Care Domestic Freight Forwarder Name Role Phone Josefina Driscoll MD Primary [...] on file Legal Sex Female 12:23 AM CARDIOVASCULAR RN Gender Identity Not on file Sexual Orientation Not on file Occupation Industry Job Start Date Job End Date retired Not on file Not on file Not on file Last Filed Vital Signs Vital Sign Reading Time Taken Comments Blood Pressure 118/68 08/22/2019 1:16 PM CARDIOVASCULAR RN Pulse 74 08/22/2019 1:16 PM CARDIOVASCULAR RN Temperature 36.4 C (97.6 F) 03/20/2018 8:03 PM CDT Respiratory Rate 20 03/20/2018 8:03 PM CDT Oxygen Saturation 97% 08/22/2019 1:16 PM CARDIOVASCULAR RN Inhaled Oxygen Concentration - - Weight 52.6 kg (116 lb) 08/22/2019 1:16 PM CARDIOVASCULAR RN Height 152.4 cm (5') 08/22/2019 1:16 PM CARDIOVASCULAR RN Body Mass Index 22.65 08/22/2019 1:16 PM CARDIOVASCULAR RN Plan of Treatment Not on file Medical Devices Implanted Type Area Medical Front Desk Coordinator Device Identifier Shelf Expiration Date Model / Serial / Lot Graft Bone Vivigen Vasquez Canc Demineralized 1cc Allograft - [id number] - [id number] Implanted:Qty: 1 on 02/18/2018 by Eulogio Hall MD at [facility] Bone N/A: Spine Lumbar Lifenet 03/24/2018 [id number] / [id number] / Concorde Proti 5 Dg [id number] Implanted:Qty: 2 on 02/18/2018 by Eulogio Hall MD at [facility] N/A: Spine Lumbar Depuy Synthes Spine 11/06/2022 [id number] / / [id number] Description:Implant L4-L5 sp dewey Screw Set Titanium Od5.5 Mm Spine 1 Inner Nonsterile Viper - [id number] Implanted:Qty: 4 on 02/18/2018 by Eulogio Hall MD at [facility] N/A: Spine Lumbar Depuy Spine [id number] / / Screw Bone 6mm 40mm Viper Prime Spine Polyax Extend Tab - [id number] Implanted:Qty: 4 on 02/18/2018 by Eulogio Hall MD at [facility] N/A: Spine Lumbar Depuy Synthes Spine [id number] / / Marcel Spinal Viper 2 Titanium Lordotic L40 Mm Mis - [id number] Implanted:Qty: 2 on 02/18/2018 by Eulogio Hall MD at [facility] N/A: Spine Lumbar Depuy Spine [id number] / / Explanted Type Area Medical Front Desk Coordinator Device Identifier Shelf Expiration Date Model / Serial / Lot Guide Wire Blunt Threaded 1.45mm - [id number] Explanted:Qty : 1 on 02/18/2018 at [facility] N/A: Spine Lumbar Depuy Synthes Spine [id number] / / Insurance MEDICARE ADVANTAGE MEDICARE ADVANTAGE MEDICARE ADVANTAGE Advance Directives For more information, please contact: [phone] * Full Code (Latest Code Status on File) Date Activated Date Inactivated Comments 02/18/2018 1:47 PM 02/20/2018 7:17 PM * Full Code Date Activated Date Inactivated Comments 01/28/2018 1:02 PM 01/29/2018 2:47 AM Care Teams Domestic Freight Forwarder Relationship Specialty Start Date End Date Josefina Driscoll MD [address] [facility] [address] [place] [address] PCP - General Family Medicine 04/18/17
== END 2025-09-02 15:53 | disposition home or self-care (01) ==
PROVIDERS: PCP Family Medicine; Visit Provider Psychiatry & Neurology Neurology
DX: I65.23 Occlusion and stenosis of bilateral carotid arteries (principal)
CPT/HCPCS: 93880